=== PATIENT | female | born 1955 | race Caucasian/White ===

== ENCOUNTER 2019-01-25 05:46 | Inpatient (IN) ==
--- NOTE | 2019-01-13 13:51 | PAT Medication Instructions ---
Medication Instructions Date of Service January 13, 2019 Home Medications atorvastatin [Lipitor] 10 mg PO PM calcium carbonate [Calcium 500] 500 mg PO BID chlorthalidone 25 mg PO QAM duloxetine [Cymbalta] 60 mg PO QPM eszopiclone [Lunesta] 3 mg PO HS fexofenadine [Chiara Allergy] 180 mg PO QAM PRN gabapentin 300 mg PO QID levothyroxine [Synthroid] 150 mcg PO QAM losartan 100 mg PO QAM multivitamin 1 cap PO QAM pramipexole [Mirapex] 0.25 mg PO PM sertraline [Zoloft] 25 mg PO 5XWK Continue as directed sertraline [Zoloft] 25 mg PO 5XWK STOP taking 24 hours before surgery pramipexole [Mirapex] 0.25 mg PO PM DO NOT take the morning of surgery calcium carbonate [Calcium 500] 500 mg PO BID chlorthalidone 25 mg PO QAM fexofenadine [Chiara Allergy] 180 mg PO QAM PRN losartan 100 mg PO QAM multivitamin 1 cap PO QAM Take morning of surgery With a small sip of water, OTHERWISE NOTHING TO EAT OR DRINK AFTER MIDNIGHT: gabapentin 300 mg PO QID levothyroxine [Synthroid] 150 mcg PO QAM Take evening before surgery atorvastatin [Lipitor] 10 mg PO PM calcium carbonate [Calcium 500] 500 mg PO BID duloxetine [Cymbalta] 60 mg PO QPM eszopiclone [Lunesta] 3 mg PO HS gabapentin 300 mg PO QID Other Notes If you have any questions please call us at [phone] or [phone] or [phone] or [phone]
--- NOTE | 2019-01-14 13:43 | Anesthesiology Consultation ---
Date of Service January 14, 2019 Assessment & Plan (1) Encounter for pre-operative examination: Chart Review Chart Review: Acceptable Risk for Surgery and Patient seen in Pre Admission Testing Teaching & Discussion Instructed NPO after midnight before surgery, except medications with 15 cc of water. Medication instructions provided according to the PAT guidelines. History Surgery Operation Date: 01/25/19 07:45 Proposed Procedures p L4-S1 Decompression and Fusion, Spinal Cord Monitoring - Matt Antunez DO Height/Weight Height: 5 ft 5 in Weight: 82.2 kg Allergies Allergy/AdvReac Type Severity Reaction Status Date / Time latex Allergy PROLONGED Verified 01/10/19 13:17 EXPOSURE TO LATEX BANDAIDE, RASH moxifloxacin [From Avelox] Allergy Rash Verified 01/10/19 13:17 Penicillins Allergy Rash Verified 01/10/19 13:17 Medications Home Medications Medication Instructions Recorded Confirmed Last Taken atorvastatin [Lipitor] 10 mg PO PM 01/10/19 01/10/19 Unknown calcium carbonate [Calcium 500] 500 mg PO BID 01/10/19 01/10/19 Unknown chlorthalidone 25 mg PO QAM 01/10/19 01/10/19 Unknown duloxetine [Cymbalta] 60 mg PO QPM 01/10/19 01/10/19 Unknown eszopiclone [Lunesta] 3 mg PO HS 01/10/19 01/10/19 Unknown fexofenadine [Chiara Allergy] 180 mg PO QAM PRN 01/10/19 01/10/19 Unknown gabapentin 300 mg PO QID 01/10/19 01/10/19 Unknown levothyroxine [Synthroid] 150 mcg PO QAM 01/10/19 01/10/19 Unknown losartan 100 mg PO QAM 01/10/19 01/10/19 Unknown multivitamin 1 cap PO QAM 01/10/19 01/10/19 Unknown pramipexole [Mirapex] 0.25 mg PO PM 01/10/19 01/10/19 Unknown sertraline [Zoloft] 25 mg PO 5XWK 01/10/19 01/10/19 Unknown Past Medical History Medical History Chronic back pain PAIN RADIATING DOWN B/L LEGS. WORSE IN RIGHT. Degenerative disc disease Depression PT'S SPOUSE A LITTLE OVER A YEAR AGO. Fibromyalgia GERD (gastroesophageal reflux disease) DIET CONTROLLED Hyperlipidemia Hypertension Hypothyroidism Osteoarthritis Rheumatoid arthritis DIAGNOSED "SEVERAL YEARS AGO", PATIENT NOT ON ANY MEDICATIONS FOR RA. WAS ON MTX FOR A WHILE BUT D/C'D BECAUSE IT DIDN'T HELP. Sleep apnea TOLD SHE HAD SLEEP APNEA "MANY YEARS AGO", PT STATES SHE WAS NEVER PRESCRIBED A DEVICE AND DOES NOT HAVE ANY ISSUES. Exercise / Class Metabolic Activity 1 > 8 Run/Swim/Ski/Tennis (PT STATES SHE IS VERY ACTIVE DESPITE BACK PAIN) Past Surgical History Surgical History History of bilateral tubal ligation History of foot surgery RT FOOT. PT STATES PLASTIC HARDWARE WAS PLACED. History of repair of rotator cuff History of sinus surgery Past Anesthesia History No Hx of Anesthesia Complications and No Family Hx of Anesthesia Complications History of PONV No Hx of PONV and No Hx of Motion Sickness Social History Smoking Status: Never smoker Smoking cigarettes per day: 0 Do You Dip or Chew Tobacco: No Hx Alcohol Use: Yes alcohol intake frequency: a few times a month Hx Substance Use: No substance use type: does not use Review of Systems Pt denies any recent chest pain, shortness of breath, palpitations, cough, fever or URI. Physical Exam Vital Signs BP: 140/82 P: 75bpm SPO2: 96% RA T: 98.3 F R: 12 ENMT Mouth: no dental restorations, no chipped teeth and no loose teeth Thyromental Distance: < 3.5 Finger Breadths (2) Mallampati Class: III Neck + shortened thyromental distance and + limited neck extension (can fully extend neck, but has pain with full extension) Respiratory normal respiratory effort Auscultation: lungs clear to auscultation bilaterally Cardiovascular Rate/Rhythm: regular rate and regular rhythm Heart Sounds: no murmur Vessels: no carotid bruit Extremities: no edema Testing Electrocardiogram Date: 01/14/19 Findings: + NSR @ (77) Chest X-Ray Date: 01/14/19 Findings: + NAD Cervical Spine Date: 01/14/19 FINDINGS: Lateral views of the cervical spine in the neutral, flexion, and extension positions are obtained. No prior studies are available for comparison at the time of dictation. The skeletal structures are osteopenic. There is no ra diographic evidence of fracture or subluxation seen on these lateral views. Vertebral body height and alignment are maintained throughout the cervical spine. There is straightening of the cervical lordosis. No inducible bony subluxation is identified on the flexion/extension views. The atlantodental articulation appears maintained noting productive degenerative change. The spinolaminar line is preserved. Anterior osteophytes are seen throughout. There is moderate disc space narrowing seen at C4-C5, C5-C6, and C6-C7. Posterior disc osteophyte complexes at these levels likely contribute to mild multilevel acquired compromise of the central canal. The prevertebral soft tissues are normal as imaged. IMPRESSION: 1. No acute bony abnormality is identified involving the cervical spine. 2. Osteopenia and spondylotic change as above. 3. No inducible subluxation is identified on the flexion/extension views. Laboratory Results 01/14/19 14:03 01/14/19 14:03 Blood Type B Positive 01/14/19 14:03 Antibody Screen NEGATIVE 01/14/19 14:03 PT 10.2 Seconds (9.0-12.0) 01/14/19 14:03 INR 1.0 (0.9-1.1) 01/14/19 14:03 APTT 26.6 Seconds (21.0-31.0) 01/14/19 14:03 Urine Color Yellow 01/14/19 14:03 Urine Appearance Clear (Clear) 01/14/19 14:03 Urine pH 8.0 (4.5-7.5) H 01/14/19 14:03 Ur Specific [place] 1.014 (1.000-1.030) 01/14/19 14:03 Urine Protein Negative (Negative) 01/14/19 14:03 Urine Glucose (UA) Negative (Negative) 01/14/19 14:03 Urine Ketones Negative (Negative) 01/14/19 14:03 Urine Nitrite Negative (Negative) 01/14/19 14:03 Ur Leukocyte Esterase Negative (Negative) 01/14/19 14:03
--- NOTE | 2019-01-14 14:27 | XRay Report ---
XR chest Pre-admission PA/Lat HISTORY: 63 years-old Female pat preoperative exam. No acute chest complaints COMPARISON: None available TECHNIQUE: 2 views of the chest FINDINGS: Cardiomediastinal and hilar silhouettes are within normal limits. No pneumothorax, pleural effusion, focal airspace consolidation or overt pulmonary edema. Degenerative changes of the shoulders and spin e. No erosive arthropathy identified. IMPRESSION: No acute process. The above report was generated using voice recognition software. It may contain grammatical, syntax o r spelling errors. Electronically signed by: Brandon Rodriguez M.D. 01/14/2019 2:26 PM
--- NOTE | 2019-01-14 14:33 | XRay Report ---
CERVICAL SPINE 3 VIEWS CLINICAL HISTORY: Preoperative examination. Rheumatoid arthritis. FINDINGS: Lateral views of the cervical spine in the neutral, flexion, and extension positions are ob tained. No prior studies are available for comparison at the time of dictation. The skeletal structur es are osteopenic. There is no radiographic evidence of fracture or subluxation seen on these lateral views. Vertebral body height and alignment are maintained throughout the cervical spine. There is st raightening of the cervical lordosis. No inducible bony subluxation is identified on the flexion/exte nsion views. The atlantodental articulation appears maintained noting productive degenerative change. The spinolaminar line is preserved. Anterior osteophytes are seen throughout. There is moderate disc space narrowing seen at C4-C5, C5-C6, and C6-C7. Posterior disc osteophyte complexes at these levels likely contribute to mild multilevel acquired compromise of the central canal. The prevertebral soft tissues are normal as imaged. IMPRESSION: 1. No acute bony abnormality is identified involving the cervical spine. 2. Osteopenia and spondylotic change as above. 3. No inducible subluxation is identified on the flexion/extension views. Electronically signed by: Jerry Hyde M.D. 01/14/2019 2:32 PM
[2019-01-14 15:26] LABS: Appearance Urine Clear (Clear); Basophils # (auto) 0.06 K/uL (0-0.2); Bilirubin Urine Negative (Negative); Color Urine Yellow; Eosinophils % (auto) 3.2 %; Glucose Urine UA Negative (Negative); Hematocrit (blood only) 42.2 % (37-47); Hemoglobin 14.7 g/dL (12.0-16.0); Ketones Urine Negative (Negative); Leukocyte Esterase Urine Negative (Negative); Lymphocytes % (auto) 36.7 %; Mean Corpuscular Hgb Conc 34.8 g/dL (32-36); Mean Corpuscular Volume 86.5 fL (80-100); Mean Platelet Volume 9.6 fL (7.4-10.4); Monocytes # (auto) 0.75 K/uL (0.11-0.59); Neutrophils # (auto) 2.96 K/uL (1.4-6.5); Neutrophils % (auto) 47.1 %; Nitrite Urine Negative (Negative); Platelet Count 286 K/uL (130-400); Protein Urine Negative (Negative); RDW Standard Deviation 41.5 fL (36.4-46.3); Red Blood Count 4.88 M/uL (4.2-5.4); Specific Gravity Urine 1.014 (1.000-1.030); Urobilinogen Urine Negative (Negative); White Blood Count 6.27 K/uL (4.8-10.8)
[2019-01-14 15:34] LABS: BUN Creatinine Ratio 11.9 (10-20); Calcium 9.9 mg/dl (8.5-10.1); Creatinine Clr Calc Pharmacy 70.8 ml/min; Est GFR (African American) 83.9; Est GFR (Non-African American) 72.4; Potassium 3.7 mmol/L (3.5-5.1)
[2019-01-14 15:40] LABS: Partial Thromboplastin Time 26.6 Seconds (21.0-31.0); Prothrombin Time 10.2 Seconds (9.0-12.0)
[2019-01-25] MEDS ORDERED: CLINDAMYCIN 600 MG/54 ML BAG IV SCH (06:00)
[2019-01-25] MEDS ORDERED: GABAPENTIN 300 MG x 2 PO SCH (06:00)
[2019-01-25] MEDS ORDERED: ACETAMINOPHEN 500 MG TAB PO SCH (06:00)
[2019-01-25] MEDS ORDERED: CeleBREX 200 MG CAP PO SCH (06:00)
[2019-01-25] MEDS ORDERED: LR 15ML/HR IV SCH (06:00)
[2019-01-25] MEDS ORDERED: fentaNYL citrate 100 MCG/2 ML VIAL ONE ×4 (06:38→09:10)
[2019-01-25] MEDS ORDERED: MIDAZOLAM HCL 1 MG/ML 2ML VIAL ONE (06:38)
[2019-01-25] MEDS ORDERED: HYDROmorphone INJ 2 MG/ML SYR/VIAL ONE ×2 (06:38)
[2019-01-25] MEDS ORDERED: LIDOCAINE HCL 2% 2 ML VIAL/AMP(20MG/ML) INFIL ONE (06:40)
[2019-01-25] MEDS ORDERED: GLYCOPYRROLATE 0.2 MG/ML VIAL ONE (06:40)
[2019-01-25] MEDS ORDERED: ONDANSETRON INJ 2 MG/ML 2 ML VIAL ONE (06:40)
[2019-01-25] MEDS ORDERED: ROCURONIUM BROMIDE 10 MG/ML 5 ML VIAL ONE (06:40)
[2019-01-25] MEDS ORDERED: NEOSTIGMINE METHYLSULFATE 1 MG/ML 10ML VIAL ONE (06:40)
[2019-01-25] MEDS ORDERED: DEXAMETHASONE SOD INJ 4 MG/ML VIAL ONE (06:40)
[2019-01-25] MEDS ORDERED: PROPOFOL IV EMULSION 10 MG/ML 20 ML VIAL IV ONE (06:40)
[2019-01-25] MEDS ORDERED: PROPOFOL IV EMULSION 10 MG/ML 100 ML VIAL IV ONE (06:47)
[2019-01-25] MEDS ORDERED: BUPIVACAINE/EPINEPHRINE 0.5% MPF 1:200,000 30 ML VIAL ONE (06:53)
[2019-01-25] MEDS ORDERED: BACITRACIN INJ 50,000 UNIT VIAL ONE (06:54)
--- NOTE | 2019-01-25 07:30 | History & Physical Bridge Note ---
Date of Service January 25, 2019 History & Physical Bridge Note I have examined the patient, reviewed the History & Physical and in the interval since the performance of the History & Physical I have noted the following changes of clinical significance: no changes noted
--- NOTE | 2019-01-25 07:32 | History & Physical Report ---
Date of Service January 25, 2019 Assessment & Plan (1) Spinal stenosis, lumbar region with neurogenic claudication: L4-S1 decompression fusion Present on Admission?: Yes History of Present Illness Chief Complaint: Back and leg pain Primary Care Provider: Miguel A Carney This is a 63-year-old female who presents with chronic extensive course of nonoperative care she is here for surgical intervention. Allergies Allergy/AdvReac Type Severity Reaction Status Date / Time latex Allergy PROLONGED Verified 01/25/19 06:09 EXPOSURE TO LATEX BANDAIDE, RASH moxifloxacin [From Avelox] Allergy Rash Verified 01/25/19 06:09 Penicillins Allergy Rash Verified 01/25/19 06:09 Home Medications Home Medications Medication Instructions Recorded Confirmed Type atorvastatin [Lipitor] 10 mg PO PM 01/10/19 01/25/19 History calcium carbonate [Calcium 500] 500 mg PO BID 01/10/19 01/25/19 History chlorthalidone 25 mg PO QAM 01/10/19 01/25/19 History duloxetine [Cymbalta] 60 mg PO QPM 01/10/19 01/25/19 History eszopiclone [Lunesta] 3 mg PO HS 01/10/19 01/25/19 History fexofenadine [Chiara Allergy] 180 mg PO QAM PRN 01/10/19 01/25/19 History gabapentin 300 mg PO QID 01/10/19 01/25/19 History levothyroxine [Synthroid] 150 mcg PO QAM 01/10/19 01/25/19 History losartan 100 mg PO QAM 01/10/19 01/25/19 History multivitamin 1 cap PO QAM 01/10/19 01/25/19 History pramipexole [Mirapex] 0.25 mg PO PM 01/10/19 01/25/19 History sertraline [Zoloft] 25 mg PO DAILY 01/10/19 01/25/19 History Past Med/Surg History Medical History Chronic back pain PAIN RADIATING DOWN B/L LEGS. WORSE IN RIGHT. Degenerative disc disease Depression PT'S SPOUSE A LITTLE OVER A YEAR AGO. Fibromyalgia GERD (gastroesophageal reflux disease) DIET CONTROLLED Hyperlipidemia Hypertension Hypothyroidism Osteoarthritis Rheumatoid arthritis DIAGNOSED "SEVERAL YEARS AGO", PATIENT NOT ON ANY MEDICATIONS FOR RA. WAS ON MTX FOR A WHILE BUT D/C'D BECAUSE IT DIDN'T HELP. Sleep apnea TOLD SHE HAD SLEEP APNEA "MANY YEARS AGO", PT STATES SHE WAS NEVER PRESCRIBED A DEVICE AND DOES NOT HAVE ANY ISSUES. Surgical History History of bilateral tubal ligation History of foot surgery RT FOOT. PT STATES PLASTIC HARDWARE WAS PLACED. History of repair of rotator cuff History of sinus surgery Social History Preferred Language: Maltese Shipping Inspector Required: No Beliefs That Will Affect Care: None Current Living Situation: Alone Other Information That Helps Us Care for You: No Feels Safe at Home: Yes Safety Concerns: Feels Safe At This Time Smoking Status: Never smoker Cigarettes Per Day: 0 Do You Dip or Chew Tobacco: No Second Hand Exposure: No Tobacco Cessation Education Requested by Patient: No Hx Alcohol Use: Yes Hx Substance Use: No Physical Exam Vital Signs (Past 24 Hours): Last Vital Signs Temp 36.8 C 01/25/19 06:16 Pulse 98 H 01/25/19 06:16 Resp 18 01/25/19 06:16 BP 168/76 H 01/25/19 06:16 Pulse Ox 97 01/25/19 06:16 Physical Exam: Patient is alert and oriented neurologically intact.
[2019-01-25] MEDS ORDERED: ePHEDrine sulfate 50 MG/ML AMP IV PRN (08:51)
[2019-01-25] MEDS ORDERED: ATROPINE SULFATE 0.1 MG/ML 10ML SYR IV PRN (08:51)
[2019-01-25] MEDS ORDERED: fentaNYL citrate 100 MCG/2 ML VIAL IV PRN (08:51)
[2019-01-25] MEDS ORDERED: HYDROmorphone INJ 2 MG/ML SYR/VIAL IV PRN (08:51)
[2019-01-25] MEDS ORDERED: ONDANSETRON INJ 2 MG/ML 2 ML VIAL IV PRN ×2 (08:51→11:42)
[2019-01-25] MEDS ORDERED: FLOSEAL HEMOSTATIC MATRIX 10ML TOP ONE (09:23)
[2019-01-25] MEDS ORDERED: KETOROLAC 30 MG/ML VIAL ONE (10:09)
[2019-01-25] MEDS ORDERED: ESMOLOL HCL INJ 10 MG/ML 10ML VIAL IV ONE (10:09)
[2019-01-25] MEDS ORDERED: METOCLOPRAMIDE HCL INJ 5 MG/ML 2 ML VIAL ONE (10:09)
--- NOTE | 2019-01-25 10:14 | Operative Report ---
Post Operative Report Pre & Post Diagnosis Operation Date: 01/25/19 07:45 Pre-Op Diagnosis: Lumbar spinal stenosis with neurogenic claudication Obesity Post-Op Diagnosis: Same Procedure Operation Date: 01/25/19 07:45 Actual Procedures #1 lumbar decompression bilateral medial facetectomies and foraminotomies L3-4 L4-5 L5-S1. #2 posterior spinal fusion L4-5 L5-S1. #3 posterior segmental instrumentation L4-5 L5-S1. #4 interbody fusion L4-5 L5-S1. #5 history of peek cage 11 x 22 mm L4-5 L5-S1. #6 placement of locally harvested morselized autograft in the posterior lateral gutters. #7 placement infuse collagen sponge bone mass graft in the posterior lateral gutters and ostial amp in the interbody space. Surgeon Matt Antunez, DO Teacher Ballet Coco Craig Estimated Blood Loss 250 Findings See Below Patient is 5 foot and 5 inches tall weighing over 84 kg with a BMI of 31. Patient's body habitus did add at least 25% increase in operative time due to the technical difficulty. Specimens None Indications This is a 63-year-old female that presents with significant spinal stenosis and marked decline in status. Subsequently she is here for surgical intervention. Description of Procedure Patient was met with identified and informed consent obtained. Patient was then taken to the operative suite underwent intubation placed in a prone position on the Tavo table on top of the Luke frame. All bony prominences well-padded eyes inspected to ensure no external pressure placed upon the peer at this point the lumbar spine was prepped and draped in the normal sterile fashion. Sharp dissection with the assistance of Bovie cautery was performed down to and exposing the lamina and transverse processes of L3-L4-L5 and the sacral ala bilaterally. From a caudal to cephalad fashion complete laminectomy of L5 L4 and partial laminectomy of L3 was performed including bilateral medial facetectomies and foraminotomies addressing severe stenosis. Pedicle screws were then placed in L4-L5 and S1 levels bilaterally with assistance of fluoroscopy and the probably size soheila placed. By way of a transforaminal approach on the right complete discectomy of L5-S1 was performed in place curetted to subcortical bleeding bone in the 11 x 22 mm peek cage filled with ostium bone graft tapped in position. Then proceeded to L4-[address] of a transforaminal approach complete discectomy performed in plate graded to subcortical bleeding bone and again 11 x 22 mm peek cage filled with ostium bone graft tapped in position. The rods were then locked in final position bilaterally. The transverse processes of L4-L5 and sacral ala bur to subcortical bleeding bone. Infuse collagen sponge mass graft local autograft placed in the posterior lateral gutters. 15 round DAVID drain inserted. The incision was then closed with 1 Vicryl in the fascia 2-0 Vicryl subcutaneously and 4-0 Monocryl for final skin closure. Steri-Strip sterile dressings placed. Patient will continue to PACU stable condition. Please note Coco Craig present throughout the entire procedure involved in patient positioning complex portions of the surgery and final skin closure. Lastly spinal cord monitoring was utilized and no changes noted. I attest to the content of the Intraoperative Record and any orders documented therein. Any exceptions are noted below.
--- NOTE | 2019-01-25 10:21 | Fluoroscopy Report ---
LUMBAR SPINE, INTRAOPERATIVE FLUOROSCOPY HISTORY: L4 S1 decompression and fusion. FLUOROSCOPY TIME: 23 seconds. FINDINGS: Intraoperative fluoroscopy was provided for the lumbar spine. 2 fluoroscopic spot images we re obtained. Posterior decompression and fusion from L4 through S1 with pedicle screws and rods. The hardware appears intact. IMPRESSION: Fluoroscopy provided for a L4-S1 posterior decompression and fusion. Electronically signed by: Fabian Carbone M.D. 01/25/2019 10:20 AM
[2019-01-25] MEDS ORDERED: LARYING-O-JET KIT (LTA) ONE (11:15)
[2019-01-25] MEDS ORDERED: ONDANSETRON 4 MG TAB PO PRN (11:42)
[2019-01-25] MEDS ORDERED: METOCLOPRAMIDE HCL INJ 5 MG/ML 2 ML VIAL IV PRN (11:42)
[2019-01-25] MEDS ORDERED: MAGNESIUM HYDROXIDE SUSP 30 ML UDC PO PRN (11:42)
[2019-01-25] MEDS ORDERED: FEXOFENADINE HCL 180 MG TAB PO PRN (11:42)
[2019-01-25] MEDS ORDERED: ALUMINUM/MAGNESIUM SUSP 30 ML UDC PO PRN (11:42)
[2019-01-25] MEDS ORDERED: DO NOT ADMINISTER PNEUMOCOCCAL VACCINE PRN (11:42)
[2019-01-25] MEDS ORDERED: FAMOTIDINE 20 MG TAB PO PRN (11:42)
[2019-01-25] MEDS ORDERED: ACETAMINOPHEN 1,000 MG/100 ML VIAL IV PRN (11:42)
[2019-01-25] MEDS ORDERED: BISACODYL 10 MG SUPP PR PRN (11:42)
[2019-01-25] MEDS ORDERED: PROMETHAZINE HCL 12.5 MG in SODIUM CHLORIDE 0.9% 50 ML IV PRN (11:42)
[2019-01-25] MEDS ORDERED: TRAMADOL HCL 50 MG TABLET PO PRN (11:42)
[2019-01-25] MEDS ORDERED: DO NOT ADMINISTER FLU VACCINE PRN (11:42)
[2019-01-25] MEDS ORDERED: LORazepam 0.5 MG TAB PO PRN (11:42)
[2019-01-25] MEDS ORDERED: HYDROmorphone INJ 0.5 MG/0.5 ML SYR IV PRN (11:42)
[2019-01-25] MEDS ORDERED: SOD PHOSPHATE/SOD BIPHOSPHATE ENEMA 132 ML BTL PR PRN (11:42)
[2019-01-25] MEDS ORDERED: LORazepam 0.5 MG/1 ML VIAL IV PRN (11:42)
--- NOTE | 2019-01-25 11:43 | Anesthesiology Progress Note ---
Date of Service January 25, 2019 Anesthesia Post Procedure Vital Signs Vital Signs: Temp Pulse Pulse Resp BP Pulse Ox 01/25/19 11:05 37.0 C 106 H 15 144/97 H 96 01/25/19 10:55 103 H 15 148/74 H 96 01/25/19 10:45 105 H 21 130/77 100 01/25/19 10:35 85 14 119/60 100 01/25/19 10:29 36.4 C L 85 12 134/74 96 01/25/19 06:16 36.8 C 98 H 18 168/76 H 97 Transfer of Care Handoff Completed per policy Notes Mental Status: alert / awake / arousable Patient Amnestic to Procedure: Yes Nausea / Vomiting: adequately controlled Pain: adequately controlled Airway Patency, RR, SpO2: stable & adequate BP & HR: stable & adequate Hydration State: stable & adequate Anesthetic Complications: no major complications apparent
[2019-01-25] MEDS ORDERED: LACTATED RINGER'S 1,000 ML IV SCH (12:15)
[2019-01-25] MEDS: GABAPENTIN 300 MG CAP PO SCH ×3 (13:41→21:33)
[2019-01-25] MEDS: OXYCODONE HCL IR 5 MG TAB (IMMEDIATE RELEASE) PO PRN (14:49)
[2019-01-25] MEDS: CLINDAMYCIN 600 MG in DEXTROSE 5% 50 ML IV SCH ×2 (15:56→22:56)
[2019-01-25] MEDS: KETOROLAC TROMETHAMINE 15 MG/ML VIAL IV SCH ×2 (15:57→21:33)
[2019-01-25] MEDS ORDERED: CALCIUM CARBONATE 1250MG TAB PO SCH (17:00)
[2019-01-25] MEDS: CALCIUM CARBONATE 1250MG TAB PO SCH (17:49)
[2019-01-25] MEDS: PRAMIPEXOLE DIHYDROCHLO 0.25 MG TAB PO SCH (21:32)
[2019-01-25] MEDS: ESZOPICLONE 3 MG TAB PO SCH (21:32)
[2019-01-25] MEDS: ATORVASTATIN 10 MG TAB PO SCH (21:33)
[2019-01-25] MEDS: DULOXETINE HCL 60 MG CAP PO SCH (21:33)
[2019-01-25] MEDS: DOCUSATE SODIUM/SENNA 50/8.6MG TAB PO SCH (21:33)
[2019-01-26] MEDS: KETOROLAC TROMETHAMINE 15 MG/ML VIAL IV SCH ×3 (03:49→10:30)
[2019-01-26] MEDS: LEVOTHYROXINE SODIUM 150 MCG TABLET PO SCH (05:29)
[2019-01-26] MEDS: POLYETHYLENE (MIRALAX) 17 GM PACK PO SCH ×3 (05:29→18:00)
[2019-01-26 05:49] LABS: Hematocrit (blood only) 31.9 % (37-47); Hemoglobin 10.9 g/dL (12.0-16.0); Immature Granulocytes # (auto) 0.06 K/uL (0.00-0.02); Immature Granulocytes % (auto) 0.3 %; Lymphocytes # (auto) 1.52 K/uL (1.2-3.4); Lymphocytes % (auto) 8.3 %; Mean Corpuscular Hgb Conc 34.2 g/dL (32-36); Mean Corpuscular Volume 85.3 fL (80-100); Mean Platelet Volume 8.7 fL (7.4-10.4); Monocytes # (auto) 1.15 K/uL (0.11-0.59); Monocytes % (auto) 6.3 %; Neutrophils # (auto) 15.59 K/uL (1.4-6.5); Neutrophils % (auto) 85.1 %; Platelet Count 239 K/uL (130-400); RDW Coefficient of Variation 12.4 % (11.5-14.5); RDW Standard Deviation 38.5 fL (36.4-46.3); Red Blood Count 3.74 M/uL (4.2-5.4); White Blood Count 18.32 K/uL (4.8-10.8)
[2019-01-26 06:18] LABS: BUN Creatinine Ratio 17.5 (10-20); Calcium 8.7 mg/dl (8.5-10.1); Creatinine Clr Calc Pharmacy 65.5 ml/min; Est GFR (African American) 75.3; Est GFR (Non-African American) 64.9; Potassium 3.8 mmol/L (3.5-5.1)
[2019-01-26] MEDS: CALCIUM CARBONATE 1250MG TAB PO SCH ×2 (08:36→17:59)
[2019-01-26] MEDS: MULTIVITAMIN TAB PO SCH (08:36)
[2019-01-26] MEDS: GABAPENTIN 300 MG CAP PO SCH ×4 (08:36→20:31)
[2019-01-26] MEDS: CHLORTHALIDONE 25 MG TAB PO SCH (08:36)
[2019-01-26] MEDS: SERTRALINE HCL 50 MG TABLET PO SCH (08:37)
--- NOTE | 2019-01-26 08:43 | Anesthesiology Progress Note ---
Date of Service January 26, 2019 Anesthesia Post Procedure Vital Signs Vital Signs: Temp Pulse Pulse Resp BP Pulse Ox 01/26/19 07:25 36.6 C 74 17 130/66 96 01/26/19 03:51 36.7 C 92 H 16 120/63 92 01/25/19 22:54 36.7 C 106 H 18 118/67 95 01/25/19 20:04 36.5 C 107 H 16 115/73 93 01/25/19 14:26 112 H 16 125/73 01/25/19 13:34 36.5 C 107 H 18 134/72 91 01/25/19 12:33 36.7 C 84 16 135/79 91 01/25/19 11:57 105 H 18 141/79 H 93 01/25/19 11:25 36.4 C L 102 H 18 149/68 H 94 01/25/19 11:05 37.0 C 106 H 15 144/97 H 96 01/25/19 10:55 103 H 15 148/74 H 96 01/25/19 10:45 105 H 21 130/77 100 01/25/19 10:35 85 14 119/60 100 01/25/19 10:29 36.4 C L 85 12 134/74 96 Pain Intensity Back: Pain Intensity: 2 Notes Mental Status: alert / awake / arousable and participated in evaluation Patient Amnestic to Procedure: Yes Nausea / Vomiting: adequately controlled Pain: adequately controlled Airway Patency, RR, SpO2: stable & adequate BP & HR: stable & adequate Anesthetic Complications: no major complications apparent and Pt Satisfied with anesthetic care
[2019-01-26] MEDS: OXYCODONE HCL IR 5 MG TAB (IMMEDIATE RELEASE) PO PRN ×3 (08:46→21:31)
[2019-01-26] MEDS: LOSARTAN POTASSIUM 50 MG TAB PO SCH (09:25)
[2019-01-26] MEDS: ACETAMINOPHEN 500 MG TAB PO PRN ×2 (10:33→21:31)
--- NOTE | 2019-01-26 13:49 | Orthopedic Progress Note ---
Date of Service January 26, 2019 Assessment & Plan (1) Spinal stenosis, lumbar region with neurogenic claudication: At this time we will continue physical therapy monitor her DAVID output anticipate discharge home the next few days. Present on Admission?: Yes Subjective Patient's back pain is well controlled leg symptoms markedly improved. Physical Exam Physical Exam: On exam she is good strength testing appears comfortable. Results & Data Vital Signs (Past 12 Hours) Vital Signs Temp Pulse Pulse Resp BP Pulse Ox 01/26/19 12:04 36.4 C L 90 16 114/66 97 01/26/19 07:25 36.6 C 74 17 130/66 96 01/26/19 03:51 36.7 C 92 H 16 120/63 92
[2019-01-26] MEDS: DOCUSATE SODIUM/SENNA 50/8.6MG TAB PO SCH (20:31)
[2019-01-26] MEDS: PRAMIPEXOLE DIHYDROCHLO 0.25 MG TAB PO SCH (20:31)
[2019-01-26] MEDS: ATORVASTATIN 10 MG TAB PO SCH (20:31)
[2019-01-26] MEDS: DULOXETINE HCL 60 MG CAP PO SCH (20:31)
[2019-01-26] MEDS: ESZOPICLONE 3 MG TAB PO SCH (21:31)
[2019-01-27] MEDS: ACETAMINOPHEN 500 MG TAB PO PRN ×3 (05:43→23:25)
[2019-01-27] MEDS: OXYCODONE HCL IR 5 MG TAB (IMMEDIATE RELEASE) PO PRN ×5 (05:43→23:25)
[2019-01-27] MEDS: LEVOTHYROXINE SODIUM 150 MCG TABLET PO SCH (05:43)
[2019-01-27] MEDS: SERTRALINE HCL 50 MG TABLET PO SCH (08:22)
[2019-01-27] MEDS: GABAPENTIN 300 MG CAP PO SCH ×4 (08:22→21:05)
[2019-01-27] MEDS: MULTIVITAMIN TAB PO SCH (08:22)
[2019-01-27] MEDS: CHLORTHALIDONE 25 MG TAB PO SCH (08:22)
[2019-01-27] MEDS: CALCIUM CARBONATE 1250MG TAB PO SCH ×2 (08:22→16:19)
[2019-01-27] MEDS: LOSARTAN POTASSIUM 50 MG TAB PO SCH (08:23)
--- NOTE | 2019-01-27 15:49 | Orthopedic Progress Note ---
Date of Service January 27, 2019 Assessment & Plan (1) Spinal stenosis, lumbar region with neurogenic claudication: This time we will continue physical therapy monitor her DAVID output anticipate discharge home tomorrow. Present on Admission?: Yes Subjective Patient's back pain is well controlled leg symptoms markedly improved. Physical Exam Physical Exam: Patient is in the chair at the bedside. She has good strength testing. Appears comfortable. Results & Data Vital Signs (Past 12 Hours) Vital Signs Temp Pulse Resp BP Pulse Ox 01/27/19 15:13 36.9 C 95 H 16 117/71 96 01/27/19 08:00 36.7 C 74 16 115/65 96
[2019-01-27] MEDS: DULOXETINE HCL 60 MG CAP PO SCH (21:05)
[2019-01-27] MEDS: ATORVASTATIN 10 MG TAB PO SCH (21:05)
[2019-01-27] MEDS: DOCUSATE SODIUM/SENNA 50/8.6MG TAB PO SCH (21:05)
[2019-01-27] MEDS: PRAMIPEXOLE DIHYDROCHLO 0.25 MG TAB PO SCH (21:05)
[2019-01-27] MEDS: ESZOPICLONE 3 MG TAB PO SCH (21:06)
[2019-01-28] MEDS: LEVOTHYROXINE SODIUM 150 MCG TABLET PO SCH (05:21)
[2019-01-28] MEDS: OXYCODONE HCL IR 5 MG TAB (IMMEDIATE RELEASE) PO PRN ×2 (07:54→12:07)
[2019-01-28] MEDS: ACETAMINOPHEN 500 MG TAB PO PRN (07:54)
[2019-01-28] MEDS: LOSARTAN POTASSIUM 50 MG TAB PO SCH (08:33)
[2019-01-28] MEDS: CALCIUM CARBONATE 1250MG TAB PO SCH (08:33)
[2019-01-28] MEDS: SERTRALINE HCL 50 MG TABLET PO SCH (08:34)
[2019-01-28] MEDS: CHLORTHALIDONE 25 MG TAB PO SCH (08:34)
[2019-01-28] MEDS: MULTIVITAMIN TAB PO SCH (08:34)
[2019-01-28] MEDS: GABAPENTIN 300 MG CAP PO SCH ×2 (08:34→12:08)
--- NOTE | 2019-01-28 15:24 | Discharge Summary ---
Date of Service January 28, 2019 Admission HPI Per Admitting Provider This is a 63-year-old female who presents with chronic extensive course of nonoperative care she is here for surgical intervention. Principal Diagnosis Lumbar spinal stenosis with neurogenic claudication Discharge Data Allergies Allergy/AdvReac Type Severity Reaction Status Date / Time latex Allergy PROLONGED Verified 01/25/19 06:09 EXPOSURE TO LATEX BANDAIDE, RASH moxifloxacin [From Avelox] Allergy Rash Verified 01/25/19 06:09 Penicillins Allergy Rash Verified 01/25/19 06:09 Consultations 01/25/19 11:42 Consult Case Management - Discharge Planning Routine Procedures Performed Operation Date: 01/25/19 07:45 Actual Procedures p L4-S1 Decompression and Fusion, Interbody Cage L4-L5, L5-S1, Spinal Cord Monitoring - Matt Antunez DO Ordered Studies 01/25/19 07:45 FL fluoroscopy <1hr Routine FL lumbar spine 2-3V Routine Hospital Course (1) Spinal stenosis, lumbar region with neurogenic claudication: Patient underwent lumbar decompression fusion tolerated this well was taken to the orthopedic floor postoperative. Postop day and when she was up and ambulating nicely progressed to postop day #2. DAVID drain decreasing appropriately. Subsequently discharged home on postop day #3. Discharge orders and instructions can be found the chart for further review. Total Time Total Time Spent Total Time Spent (In Minutes): 20 minutes Discharge Plan Discharge Items Patient Disposition: Home - Self-Care Reason For Visit: LUMBAR SPINAL STENOSIS W/OUT NEUROGENIC CLAUDICATI Discharge Diagnosis: lumbar stenosis Discharge Goals: Improve function Activity: Per 'Additional Instructions' section Non-emergency contact: Primary Care Provider Call non-emergency contact if: you have any medication questions Follow-up/Referrals: Miguel A Carney M.D. [Primary Care Provider] - Diet: Regular Addtl Provider Instructions: ACTIVITY RECOMMENDATIONS: SELF CARE INSTRUCTIONS AFTER THORACIC/LUMBAR FUSIONS 1. You may walk to your tolerance. It is good exercise for your legs and back. Expect some back and intermittent leg aches and pains. 2. You may perform "counter-top" level activities (make a sandwich, sandra with a project, etc.). 3. No bending or lifting of more than 10 pounds or back twisting of any nature (roll like a log when turning in bed). 4. You may ride in a car for 20-30 minutes at a time. No driving until after your first visit with your doctor. 5. Frequent changes of position and restricting sitting to 30 minutes at a time will help limit the amount of back spasms and stiffness you may experience. 6. You may discontinue the use of ambulatory aids (cane, crutches, etc.) once your strength and confidence allow. 7. You may powerhouse engineer the shower and let water strike your incision when you arrive home at least once daily. Do not take a tub bath, sit in a hot tub or go into a swimming pool until after your first recheck in the office. SPECIAL CARE INSTRUCTIONS: VERY IMPORTANT TO READ AND REVIEW A. Your surgical incision has been closed with a cosmetic suture under the skin that will dissolve in about 6 weeks. In 14 days, you can use a pair of clean scissors and cut the suture that is left outside of the skin at the ends of your incision. 1. The small skin tapes can be removed 7 days after surgery if they have not fallen off by that point. 2. You may keep the wound open to air as much as possible to promote healing after post-op day number 5 unless told otherwise by your doctor. 3. If you think the wound looks like it is becoming infected (redness or worsening drainage) and/or you are experiencing fever, chill or worsening back pain and muscle spasms, contact the office so that we may evaluate you as soon as possible. B. Complications are uncommon, but please contact us if you have any signs or symptoms of: 1. wound infection (fever higher than 102.5 degrees F, redness, separation of wound, drainage, or increasing pain from the incision) 2. blood clots in legs (pain, swelling, redness and warmth in legs) 3. urinary tract infection (fever higher than 102.5 degrees F, burning upon urination or increased frequency of urination) 4. nerve problems (inability to walk on your toes or heels, numbness, loss of bowel or bladder control) 5. any other symptoms that concern you C. Please call the office at if you have any concerns or questions about your operation or recovery. D. No smoking! Smoking drastically decreases the chance of a solid fusion. E. Do not take any anti-inflammatory medications (Indocin, Advil, Motrin, Aspirin, Naprosyn, etc.) as these may inhibit the chance of a solid fusion. Tylenol is okay to take for pain. MANAGING PAIN AFTER SPINAL SURGERY 1. Narcotic medication is intended for short-term use and will be provided for surgical pain. Surgical pain usually lasts for a period of 4-6 weeks. Narcotic medication includes Percocet, Vicodin, Darvocet, Tylenol #3 or Lortab. 2. Longer-term pain is more appropriately treated with non-narcotic medication such as Tylenol ES. 3. Muscle spasm is not appropriately treated with narcotics. Muscle relaxers such as Soma, Flexeril or Skelaxin can be used along with Tylenol ES. 4. Remember that we all live with some "aches and pains". This is not unusual or uncommon after an injury or as we get older. a. Back pain is expected and may include muscle spasms for 4 to 6 weeks after surgery. The pain should gradually improve. If the pain worsens for no apparent reason, please contact the office. b. Intermittent leg pain may also be experienced and should not be concerned about unless it worsens for no apparent reason. If so, please contact the office. 5. We will provide appropriate medication within the normal guidelines of their prescribed use. We will also be very cautious and aware of potential abuse and extended duration of patients' medication needs. a. Pain medications are for your comfort and to assist with sleep and rest so that the tissue can heal. They are not provided in order to return to normal activity and should not be used through the day. To do so or worsening pain at night can result from ongoing tissue damage and development of tolerance to the prescribed medicine. 6. Please allow 2-3 days to process refills. Prescriptions will not be mailed but must be picked up at the office. FOLLOW UP VISIT: Keep your scheduled follow-up appointment. Any questions, please call the office at . Prescriptions: New tramadol 50 mg Tablet 50 mg PO Q4H PRN (Reason: Pain, Moderate) Qty: 30 RF: 0 oxycodone 5 mg Tablet 5 mg PO Q4H PRN (Reason: Pain, Severe) Qty: 30 RF: 0 Continued atorvastatin [Lipitor] 10 mg Tablet 10 mg PO PM RF: 0 fexofenadine [Chiara Allergy] 180 mg Tablet 180 mg PO QAM PRN (Reason: Allergy Symptoms) RF: 0 calcium carbonate [Calcium 500] 500 mg calcium (1,250 mg) Tablet 500 mg PO BID RF: 0 levothyroxine [Synthroid] 150 mcg Tablet 150 mcg PO QAM RF: 0 pramipexole [Mirapex] 0.25 mg Tablet 0.25 mg PO PM RF: 0 gabapentin 300 mg Capsule 300 mg PO QID RF: 0 sertraline [Zoloft] 25 mg Tablet 25 mg PO DAILY RF: 0 losartan 100 mg Tablet 100 mg PO QAM RF: 0 multivitamin Capsule 1 cap PO QAM RF: 0 duloxetine [Cymbalta] 60 mg Capsule,Delayed Release(Dr/Ec) 60 mg PO QPM RF: 0 eszopiclone [Lunesta] 3 mg Tablet 3 mg PO HS RF: 0 chlorthalidone 25 mg Tablet 25 mg PO QAM RF: 0 Stand-Alone Forms: SAVO, Opioid Pain Management Krames/Other Patient Handouts: Surgery Prevent DVT After Discharge Orders: Discharge Order (Routine); Ordered 01/28/19 Ordered By: Matt Antunez Admission Data Admit Date/Time: 01/25/19 10:18 Attending Provider: Matt Antunez Admit Provider: Matt Antunez Primary Care Provider: Miguel A Carney Service: Surgical Services Other Interventions: Discharge Summary Assessment (RN) Last Done: 01/28/19 12:40 DC Date/Time DO NOT enter until pt leaves facility: 01/28/19 13:50
== END 2019-01-28 13:50 | disposition home or self-care (01) | DRG 455 ==
LOC: ASU 05:46 → 3E 10:18

== ENCOUNTER 2019-03-03 11:24 | Inpatient (IN) ==
[2019-03-03] MEDS ORDERED: TRAMADOL HCL 50 MG TABLET PO PRN (12:29)
[2019-03-03] MEDS ORDERED: LORazepam 1 MG/2 ML VIAL IV PRN (12:29)
[2019-03-03] MEDS ORDERED: ONDANSETRON INJ 2 MG/ML 2 ML VIAL IV PRN (12:29)
[2019-03-03] MEDS ORDERED: PROMETHAZINE HCL 12.5 MG in SODIUM CHLORIDE 0.9% 50 ML IV PRN (12:29)
[2019-03-03] MEDS ORDERED: ACETAMINOPHEN 325 MG TAB PO PRN (12:29)
[2019-03-03] MEDS ORDERED: LORazepam 1 MG TAB PO PRN (12:29)
[2019-03-03] MEDS: OXYCODONE/ACETAMINOPHEN 5mg/325mg TAB PO PRN ×3 (13:16→22:05)
[2019-03-03] MEDS: LACTATED RINGER'S 1,000 ML IV SCH (13:38)
--- NOTE | 2019-03-03 13:40 | Anesthesiology Consultation ---
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 Surgery Operation Date: 03/04/19 07:45 Proposed Procedures p Incision and Drainage Lumbar Spine of Post-Op Seroma, - Matt Antunez DO s L5-S1 Hardware Removal - Matt Antunez DO Allergies Allergy/AdvReac Type Severity Reaction Status Date / Time latex Allergy PROLONGED Verified 01/25/19 06:09 EXPOSURE TO LATEX BANDAIDE, RASH moxifloxacin [From Avelox] Allergy Rash Verified 01/25/19 06:09 Penicillins Allergy Rash Verified 01/25/19 06:09 Medications Home Medications Medication Instructions Recorded Confirmed Last Taken atorvastatin [Lipitor] 10 mg PO PM 01/10/19 01/25/19 01/24/19 20:30 calcium carbonate [Calcium 500] 500 mg PO BID 01/10/19 01/25/19 01/24/19 08:30 chlorthalidone 25 mg PO QAM 01/10/19 01/25/19 01/24/19 08:30 duloxetine [Cymbalta] 60 mg PO QPM 01/10/19 01/25/19 01/24/19 17:00 eszopiclone [Lunesta] 3 mg PO HS 01/10/19 01/25/19 01/24/19 20:30 fexofenadine [Chiara Allergy] 180 mg PO QAM PRN 01/10/19 01/25/19 Unknown gabapentin 300 mg PO QID 01/10/19 01/25/19 01/25/19 03:30 levothyroxine [Synthroid] 150 mcg PO QAM 01/10/19 01/25/19 01/25/19 03:30 losartan 100 mg PO QAM 01/10/19 01/25/19 01/24/19 08:30 multivitamin 1 cap PO QAM 01/10/19 01/25/19 01/24/19 08:30 pramipexole [Mirapex] 0.25 mg PO PM 01/10/19 01/25/19 01/23/19 13:00 sertraline [Zoloft] 25 mg PO DAILY 01/10/19 01/25/19 01/24/19 20:30 oxycodone 5 mg PO Q4H PRN #30 tab 01/26/19 Unknown tramadol 50 mg PO Q4H PRN #30 tab 01/26/19 Unknown Active Medications Generic Name Dose Route Start Last Admin Trade Name Manisha PRN Reason Stop Dose Admin Lactated Ringer's 1,000 mls @ 75 mls/hr 03/03/19 12:30 03/03/19 13:38 Lr IV 04/02/19 12:29 75 mls/hr .[id number] [id number] Administration Oxycodone/Acetaminophen 1 - 2 tab 03/03/19 12:29 03/03/19 13:16 Percocet 5mg/325mg PO 03/17/19 12:28 2 tab Q4H PRN Administration moderate to severe pain Past Medical History Medical History Chronic back pain PAIN RADIATING DOWN B/L LEGS. WORSE IN RIGHT. Degenerative disc disease Depression PT'S SPOUSE A LITTLE OVER A YEAR AGO. Fibromyalgia GERD (gastroesophageal reflux disease) DIET CONTROLLED Hyperlipidemia Hypertension Hypothyroidism Osteoarthritis Rheumatoid arthritis DIAGNOSED "SEVERAL YEARS AGO", PATIENT NOT ON ANY MEDICATIONS FOR RA. WAS ON MTX FOR A WHILE BUT D/C'D BECAUSE IT DIDN'T HELP. Sleep apnea TOLD SHE HAD SLEEP APNEA "MANY YEARS AGO", PT STATES SHE WAS NEVER PRESCRIBED A DEVICE AND DOES NOT HAVE ANY ISSUES. Exercise / Class Metabolic Activity II 4-5 Yardwork/Stairs/Walk up hill Past Surgical History Surgical History History of bilateral tubal ligation History of foot surgery RT FOOT. PT STATES PLASTIC HARDWARE WAS PLACED. History of repair of rotator cuff History of sinus surgery Social History Smoking Status: Never smoker Smoking cigarettes per day: 0 Hx Alcohol Use: Yes alcohol intake frequency: a few times a month Hx Substance Use: No substance use type: does not use Testing Laboratory Results Laboratory Tests 01/14/19 01/26/19 01/26/19 14:03 05:26 05:26 WBC 18.32 H Hgb 10.9 L Plt Count 239 PT 10.2 INR 1.0 APTT 26.6 Sodium 136 Potassium 3.8 Chloride 103 Carbon Dioxide 28 BUN 16 Creatinine 0.93 Glucose 136 H Electrocardiogram Date: 01/14/19 Normal sinus rhythm, rate 77 bpm Normal ECG No previous ECGs available Confirmed by Winston Coleman ([id number]) on 01/15/2019 6:52:21 AM Chest X-Ray Date: 01/14/19 Findings: + NAD Cervical Spine Date: 01/14/19 IMPRESSION: 1. No acute bony abnormality is identified involving the cervical spine. 2. Osteopenia and spondylotic change as above. 3. No inducible subluxation is identified on the flexion/extension views.
[2019-03-03 15:02] LABS: Basophils # (auto) 0.04 K/uL (0-0.2); Basophils % (auto) 0.6 %; Eosinophils # (auto) 0.43 K/uL (0-0.5); Eosinophils % (auto) 6.7 %; Hematocrit (blood only) 27.9 % (37-47); Hemoglobin 9.5 g/dL (12.0-16.0); Immature Granulocytes # (auto) 0.01 K/uL (0.00-0.02); Immature Granulocytes % (auto) 0.2 %; Lymphocytes % (auto) 21.8 %; Mean Corpuscular Hgb Conc 34.1 g/dL (32-36); Mean Corpuscular Volume 84.3 fL (80-100); Mean Platelet Volume 7.6 fL (7.4-10.4); Monocytes % (auto) 12.5 %; Neutrophils # (auto) 3.74 K/uL (1.4-6.5); Neutrophils % (auto) 58.2 %; Platelet Count 404 K/uL (130-400); RDW Standard Deviation 39.7 fL (36.4-46.3); Red Blood Count 3.31 M/uL (4.2-5.4); White Blood Count 6.42 K/uL (4.8-10.8)
[2019-03-03 15:27] LABS: Albumin Level 2.8 gm/dl (3.4-5.0); Calcium 10.1 mg/dl (8.5-10.1); Creatinine Clr Calc Pharmacy 76.7 ml/min; Est GFR (African American) 93.1; Est GFR (Non-African American) 80.3; Potassium 2.9 mmol/L (3.5-5.1)
[2019-03-03 15:30] LABS: Albumin Globulin Ratio 0.6 (0.9-2); Bilirubin,Total 0.3 mg/dl (0.2-1); Globulin 4.3 gm/dl (2.5-4.0); Total Protein 7.1 gm/dl (6.4-8.2)
--- NOTE | 2019-03-03 16:36 | CT Scan Report ---
CT SCAN OF THE LUMBAR SPINE WITHOUT IV CONTRAST CLINICAL HISTORY: Low back pain. COMPARISON STUDY: Intraoperative lumbar spine radiographs dated 01/25/2019. TECHNIQUE: CT scan of lumbar spine is performed from the lower thoracic spine to the sacrum. Images a re reviewed in the axial, sagittal, and coronal planes. IV contrast was not administered for this exa mination. The examination is degraded by streak artifact from metallic spinal hardware. A dose loweri ng technique was utilized adhering to the principles of ALARA. CT DOSE: 630.22 mGy.cm FINDINGS: The skeletal structures are osteopenic. Vertebral body height is maintained throughout the lumbar spi ne. There is 4 mm of anterolisthesis at L4-L5 and 6 mm of anterolisthesis at L5-S1. Alignment is othe rwise preserved. Mild hyperlordosis is noted. There are postoperative changes from laminectomy and po sterior fusion seen from L4 -S1. The orthopedic hardware appears intact. Anterior osteophytes are see n throughout. There are bilateral transverse process fractures of L5. There is significant lucency id entified around the ventricular screws at S1. Both screws extend beyond the sacral cortex by approxim ately 1 cm. There has been discectomy at L4-L5 and L5-S1. The L5-S1 disc appears to have slipped post eriorly and impinges on the central canal. This is difficult to assess due to significant streak kenneth fact. There is significant endplate erosion/destruction identified at L5-S1, with evidence of fractur e involving the superior endplate of S1. Significant surrounding soft tissue inflammation is identifi ed. Mild erosive change at L4-L5 likely represents osteolysis. Moderate disc space narrowing is seen at L2-L3 and L3-L4. Moderate to advanced disc space narrowing is noted at L1-L2. Small posterior disc osteophyte complexes are seen at L1-L2 and L2-L3. There is no evidence of large disc herniation at t hese levels. Postoperative change and edema is identified within the posterior paraspinous soft tissu es from L4 to S1. No organized fluid collection is identified on this unenhanced examination. There i s minimal atherosclerotic calcification of the abdominal aorta which is normal in caliber. There is a 4 mm nonobstructing right renal calculus. No retroperitoneal adenopathy is seen. IMPRESSION: 1. There are postoperative changes from laminectomy and posterior fusion seen from L4-S1. 2. There are bilateral transverse process fractures of L5. 3. There is posterior slippage of the L5-S1 disc spacer which likely encroaches upon the central kathy l. This is difficult to assess due to significant streak artifact. 4. There is lucency identified around the interpedicular screws of S1. Additionally, there is signifi cant erosive/destructive endplate change identified at L5-S1, with fracture involving the superior en dplate of S1 and surrounding soft tissue edema. Although this could represent postoperative change an d osteolysis, the appearance is highly concerning for osteomyelitis at this level. Clinical correlati on will be essential. 5. Mild erosive change at the L4-L5 endplates likely represents postoperative osteolysis. 6. No organized fluid collection is seen on this unenhanced examination. 7. Right-sided nephrolithiasis. Electronically signed by: Jerry Hyde M.D. 03/03/2019 4:34 PM
[2019-03-03] MEDS ORDERED: POTASSIUM CHLORIDE 20 MEQ TABCR PO STA (20:24)
[2019-03-03] MEDS: DOCUSATE SODIUM 100 MG CAP PO SCH (21:01)
[2019-03-03] MEDS ORDERED: PRAMIPEXOLE DIHYDROCHLO 0.25 MG TAB PO SCH (22:15)
[2019-03-03] MEDS ORDERED: DULOXETINE HCL 20 MG CAP PO SCH (22:15)
[2019-03-03] MEDS: GABAPENTIN 300 MG CAP PO SCH ×2 (22:15→22:18)
[2019-03-03] MEDS: ATORVASTATIN 10 MG TAB PO SCH (22:16)
[2019-03-04] MEDS: LACTATED RINGER'S 1,000 ML IV SCH ×3 (02:11→20:12)
[2019-03-04] MEDS: OXYCODONE/ACETAMINOPHEN 5mg/325mg TAB PO PRN ×2 (02:11→16:30)
[2019-03-04] MEDS ORDERED: CLINDAMYCIN 600 MG/54 ML BAG IV SCH (06:00)
[2019-03-04] MEDS ORDERED: BUPIVACAINE/EPINEPHRINE 0.5% MPF 1:200,000 30 ML VIAL ONE (06:59)
[2019-03-04] MEDS ORDERED: BACITRACIN INJ 50,000 UNIT VIAL ONE (07:00)
[2019-03-04] MEDS ORDERED: GENTAMICIN SULFATE 40 MG/ML 2 ML VIAL ONE (07:00)
[2019-03-04] MEDS ORDERED: VANCOMYCIN HCL 1000MG/20ML VIAL ONE (07:00)
[2019-03-04] MEDS ORDERED: ePHEDrine sulfate 50 MG/ML AMP IV PRN (07:09)
[2019-03-04] MEDS ORDERED: ATROPINE SULFATE 0.1 MG/ML 10ML SYR IV PRN (07:09)
[2019-03-04] MEDS ORDERED: ONDANSETRON INJ 2 MG/ML 2 ML VIAL IV PRN ×2 (07:09→12:09)
[2019-03-04 07:13] LABS: BUN Creatinine Ratio 10.3 (10-20); Calcium 8.9 mg/dl (8.5-10.1); Creatinine Clr Calc Pharmacy 79.7 ml/min; Est GFR (African American) 97.6; Est GFR (Non-African American) 84.2; Potassium 3.5 mmol/L (3.5-5.1)
[2019-03-04] MEDS ORDERED: MIDAZOLAM HCL 1 MG/ML 2ML VIAL ONE (07:17)
[2019-03-04] MEDS ORDERED: fentaNYL citrate 100 MCG/2 ML VIAL ONE ×2 (07:17→09:20)
[2019-03-04] MEDS ORDERED: LIDOCAINE 2% JELLY 5 ML TUBE ONE (07:19)
--- NOTE | 2019-03-04 07:31 | History & Physical Report ---
Date of Service March 04, 2019 Assessment & Plan (1) Postoperative back pain: At this time we will plan for exploration of fusion and possible removal of instrumentation L4-5 L5-S1. Present on Admission?: Yes History of Present Illness Chief Complaint: Postoperative back pain Primary Care Provider: Miguel A Carney This is a 63-year-old female status post lumbar decompression fusion. She had done very nicely postoperatively but as the past week declined significantly. She was seen in our office yesterday imaging of the lumbar spine demonstrates posterior migration of the interbody construct at L5-S1. Subsequently elected to admit the patient for further work-up and exploration of hardware and possible removal of implant. Allergies Allergy/AdvReac Type Severity Reaction Status Date / Time latex Allergy PROLONGED Verified 01/25/19 06:09 EXPOSURE TO LATEX BANDAIDE, RASH moxifloxacin [From Avelox] Allergy Rash Verified 01/25/19 06:09 Penicillins Allergy Rash Verified 01/25/19 06:09 Home Medications Home Medications Medication Instructions Recorded Confirmed Type atorvastatin [Lipitor] 10 mg PO PM 01/10/19 01/25/19 History calcium carbonate [Calcium 500] 500 mg PO BID 01/10/19 01/25/19 History chlorthalidone 25 mg PO QAM 01/10/19 01/25/19 History duloxetine [Cymbalta] 60 mg PO QPM 01/10/19 01/25/19 History eszopiclone [Lunesta] 3 mg PO HS 01/10/19 01/25/19 History fexofenadine [Chiara Allergy] 180 mg PO QAM PRN 01/10/19 01/25/19 History gabapentin 300 mg PO QID 01/10/19 01/25/19 History levothyroxine [Synthroid] 150 mcg PO QAM 01/10/19 01/25/19 History losartan 100 mg PO QAM 01/10/19 01/25/19 History multivitamin 1 cap PO QAM 01/10/19 01/25/19 History pramipexole [Mirapex] 0.25 mg PO PM 01/10/19 01/25/19 History sertraline [Zoloft] 25 mg PO DAILY 01/10/19 01/25/19 History oxycodone 5 mg PO Q4H PRN #30 tab 01/26/19 Rx tramadol 50 mg PO Q4H PRN #30 tab 01/26/19 Rx Past Med/Surg History Medical History Chronic back pain PAIN RADIATING DOWN B/L LEGS. WORSE IN RIGHT. Degenerative disc disease Depression PT'S SPOUSE A LITTLE OVER A YEAR AGO. Fibromyalgia GERD (gastroesophageal reflux disease) DIET CONTROLLED Hyperlipidemia Hypertension Hypothyroidism Osteoarthritis Rheumatoid arthritis DIAGNOSED "SEVERAL YEARS AGO", PATIENT NOT ON ANY MEDICATIONS FOR RA. WAS ON MTX FOR A WHILE BUT D/C'D BECAUSE IT DIDN'T HELP. Sleep apnea TOLD SHE HAD SLEEP APNEA "MANY YEARS AGO", PT STATES SHE WAS NEVER PRESCRIBED A DEVICE AND DOES NOT HAVE ANY ISSUES. Surgical History History of bilateral tubal ligation History of foot surgery RT FOOT. PT STATES PLASTIC HARDWARE WAS PLACED. 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 She does have reasonable strength testing bilateral lower extremities. Sensory symmetric and intact. Incision is well-healed without erythema or drainage. Results & Data Vital Signs (Past 12 Hours) Vital Signs Temp Pulse Resp BP Pulse Ox 03/04/19 07:13 37.1 C 113 H 18 150/82 H 96 03/04/19 06:50 36.7 C 115 H 14 153/79 H 94 03/03/19 23:08 37.2 C 90 14 124/68 93
[2019-03-04] MEDS ORDERED: DEXAMETHASONE SOD INJ 4 MG/ML VIAL ONE (08:59)
[2019-03-04] MEDS ORDERED: ROCURONIUM BROMIDE 10 MG/ML 5 ML VIAL ONE (08:59)
[2019-03-04] MEDS ORDERED: ONDANSETRON INJ 2 MG/ML 2 ML VIAL ONE (08:59)
[2019-03-04] MEDS ORDERED: NEOSTIGMINE METHYLSULFATE 1 MG/ML 10ML VIAL ONE (08:59)
[2019-03-04] MEDS ORDERED: GLYCOPYRROLATE 0.2 MG/ML VIAL ONE (08:59)
[2019-03-04] MEDS ORDERED: PROPOFOL IV EMULSION 10 MG/ML 20 ML VIAL IV ONE ×2 (08:59→09:21)
[2019-03-04] MEDS ORDERED: LIDOCAINE HCL 2% 2 ML VIAL/AMP(20MG/ML) INFIL ONE (08:59)
[2019-03-04] MEDS ORDERED: HYDROmorphone INJ 2 MG/ML SYR/VIAL ONE (09:21)
[2019-03-04] MEDS: GABAPENTIN 300 MG CAP PO SCH ×2 (09:37→12:34)
[2019-03-04] MEDS: DOCUSATE SODIUM 100 MG CAP PO SCH ×2 (09:37→21:20)
[2019-03-04] MEDS ORDERED: FLOSEAL HEMOSTATIC MATRIX 10ML TOP ONE (09:59)
--- NOTE | 2019-03-04 10:42 | Operative Report ---
Post Operative Report Pre & Post Diagnosis Operation Date: 03/04/19 07:45 Pre-Op Diagnosis: Sacral fracture with displacement of interbody cage L5-S1 Post-Op Diagnosis: Same Procedure Operation Date: 03/04/19 07:45 Actual Procedures #1 removal of posterior instrumentation L4-5 L5-S1. #2 reposition of interbody cage at L5-S1. #3 revision decompression L5-S1. #4 bilateral open SI joint fusions. #5 placement of bilateral iliac bolts. #6 replacement of S1 pedicle screws. #7 placement infuse collagen sponge acquired Ozment and bilateral SI joints. #8 placement of stimulant beads impregnated with vancomycin and tobramycin in the operative bed. Surgeon Matt Antunez, DO Quality Assurance Manager None Estimated Blood Loss 100 Findings Consistent with Post-Op Diagnosis Specimens None Indications This is a 63-year-old female well-known to me that presents with marked decline in status. Imaging of the lumbar spine by way of CAT scan demonstrates displacement of interbody cage L5-S1 with fracture of the superior endplate S1. In light of her severe pain elected to go the above-mentioned procedure. Description of Procedure Patient was met with identified and informed consent obtained. She was then taken to the operative suite and underwent intubation and placed in a prone position Tavo table on top of the Luke frame. All bony prominences well- padded eyes inspected to ensure no external pressure placed upon. This point performed several x-rays of fluoroscopy identifying marked loosening of the interbody cage at L5-S1. Sharp dissection with the assistance of Bovie cautery was performed down to and exposing the instrumentation at L4-L5 and S1 levels bilaterally. I then proceeded to remove the rods bilaterally as well as the bilateral S1 pedicle screws as they were grossly loose. Then proceeded to place bilateral iliac bolts then burred out the bilateral SI joints to subcortical bleeding bone. 8.5 x 35 pedicle screws were then placed bilaterally and S1 level. They demonstrated very tight fit and no further loosening appreciated. Then performed revision decompression L5-S1 removing any remaining facet on the right and identified the protruding peek cage. It was noticeably loose and I repositioned it in the anterior portion of the interbody space. Rayle much more secure at this location. New rods were then contoured and locked into position bilaterally. This included compression across the 5 1 level. Infuse collagen sponge mass graft was then stuffed in the bilateral SI joints. 15 round DAVID drain inserted. Approximately 5 cc of stimulant beads impregnated with vancomycin Terramycin sprinkled throughout the operative bed. The incision was then closed with 1 Vicryl fascia 2-0 Vicryl subcutaneous and 4 Monocryl for final skin closure. Steri-Strip sterile dressings placed. Patient will continue PACU stable condition. I attest to the content of the Intraoperative Record and any orders documented therein. Any exceptions are noted below.
--- NOTE | 2019-03-04 10:46 | Fluoroscopy Report ---
FL lumbar spine 2-3V CLINICAL HISTORY: 63 years-old Female presenting with INCISION AND DRAINAGE L5-S1 HARDWARE REMOVAL. TECHNIQUE: 4 fluoroscopic image(s) recorded as part of an intraoperative procedure. COMPARISON: CT from 03/03/2019. FINDINGS/IMPRESSION: Posterior bilateral transpedicular screw soheila fixation of and L4-S1 on the prior exam has been extende d to bridge the bilateral sacroiliac joints. Laminectomy defects at L4-L5. Body spacers in place at L 4-5 and L5-S1 as on prior exam. Please see surgical report for further details. Fluoroscopy dosage (mGy): 31.16. Fluoroscopy time: 40.7 seconds. Number or time of high level fluoroscopy (HLF), digital spot, or digital subtraction images: 0. Electronically signed by: Wander Bullard M.D. 03/04/2019 10:45 AM
[2019-03-04] MEDS: fentaNYL citrate 100 MCG/2 ML VIAL IV PRN ×4 (10:52→11:10)
[2019-03-04] MEDS: HYDROmorphone INJ 1 MG/ML SYRINGE IV PRN ×2 (11:20→11:25)
--- NOTE | 2019-03-04 11:52 | Anesthesiology Progress Note ---
Date of Service March 04, 2019 Anesthesia Post Procedure Vital Signs Vital Signs: Temp Pulse Pulse Pulse Resp BP BP 03/04/19 11:37 98.6 F 03/04/19 11:30 105 H 14 138/60 03/04/19 11:25 105 H 12 162/72 H 03/04/19 11:21 114 H 16 132/72 03/04/19 11:20 108 H 18 03/04/19 11:15 104 H 14 157/82 H 03/04/19 11:11 83 14 139/80 03/04/19 11:10 101 H 14 03/04/19 11:05 70 16 168/68 H 03/04/19 11:00 99 H 14 159/63 H 03/04/19 10:56 69 14 144/59 H 03/04/19 10:55 103 H 17 03/04/19 10:51 71 14 150/79 H 03/04/19 10:50 99 H 14 03/04/19 10:45 88 14 160/61 H 03/04/19 10:42 99.3 F 105 H 87 15 159/75 H 159/75 H 03/04/19 07:13 98.8 F 113 H 18 150/82 H 03/04/19 06:50 98.1 F 115 H 14 153/79 H 03/03/19 23:08 99.0 F 90 14 124/68 03/03/19 14:57 98.1 F 86 16 105/67 03/03/19 13:00 98.8 F 16 135/77 Pulse Ox 03/04/19 11:37 98 03/04/19 11:30 99 03/04/19 11:25 99 03/04/19 11:21 100 03/04/19 11:20 100 03/04/19 11:15 99 03/04/19 11:11 100 03/04/19 11:10 99 03/04/19 11:05 98 03/04/19 11:00 98 03/04/19 10:56 100 03/04/19 10:55 99 03/04/19 10:51 100 03/04/19 10:50 100 03/04/19 10:45 100 03/04/19 10:42 99 03/04/19 07:13 96 03/04/19 06:50 94 03/03/19 23:08 93 03/03/19 14:57 94 03/03/19 13:00 94 Pain Intensity Back: Pain Intensity: 6 Transfer of Care Handoff Completed per policy Notes Mental Status: alert / awake / arousable and participated in evaluation Patient Amnestic to Procedure: Yes Nausea / Vomiting: adequately controlled Pain: adequately controlled Airway Patency, RR, SpO2: stable & adequate BP & HR: stable & adequate Hydration State: stable & adequate Anesthetic Complications: no major complications apparent and Pt Satisfied with anesthetic care
[2019-03-04] MEDS ORDERED: PROMETHAZINE HCL 12.5 MG in SODIUM CHLORIDE 0.9% 50 ML IV PRN (12:09)
[2019-03-04] MEDS ORDERED: LORazepam 0.5 MG/1 ML VIAL IV PRN (12:09)
[2019-03-04] MEDS ORDERED: ONDANSETRON 4 MG TAB PO PRN (12:09)
[2019-03-04] MEDS ORDERED: HYDROmorphone INJ 0.5 MG/0.5 ML SYR IV PRN (12:09)
[2019-03-04] MEDS ORDERED: ACETAMINOPHEN 500 MG TAB PO PRN (12:09)
[2019-03-04] MEDS ORDERED: DO NOT ADMINISTER PNEUMOCOCCAL VACCINE PRN (12:09)
[2019-03-04] MEDS ORDERED: SOD PHOSPHATE/SOD BIPHOSPHATE ENEMA 132 ML BTL PR PRN (12:09)
[2019-03-04] MEDS ORDERED: DO NOT ADMINISTER FLU VACCINE PRN (12:09)
[2019-03-04] MEDS ORDERED: ALUMINUM/MAGNESIUM SUSP 30 ML UDC PO PRN (12:09)
[2019-03-04] MEDS ORDERED: METOCLOPRAMIDE HCL INJ 5 MG/ML 2 ML VIAL IV PRN (12:09)
[2019-03-04] MEDS ORDERED: BISACODYL 10 MG SUPP PR PRN (12:09)
[2019-03-04] MEDS ORDERED: FAMOTIDINE 20 MG TAB PO PRN (12:09)
[2019-03-04] MEDS ORDERED: ACETAMINOPHEN 1,000 MG/100 ML VIAL IV PRN (12:09)
[2019-03-04] MEDS ORDERED: MAGNESIUM HYDROXIDE SUSP 30 ML UDC PO PRN (12:09)
[2019-03-04] MEDS ORDERED: LORazepam 0.5 MG TAB PO PRN (12:09)
[2019-03-04] MEDS: OXYCODONE HCL IR 5 MG TAB (IMMEDIATE RELEASE) PO PRN (13:21)
--- NOTE | 2019-03-04 13:40 | Hospitalist Consultation ---
Date of Consultation March 04, 2019 Assessment & Plan (1) Spinal stenosis, lumbar region with neurogenic claudication: (2) Postoperative back pain: - POD#0 S/P removal and revision of hardware L4-L5 and L5-S1, revision of decompression at L5-S1, bilateral SI joint fusions by Dr. Antunez - activity and wound care orders as per ortho - pain control with bowel regimen - PT/OT - monitor H/H for acute blood loss anemia and transfuse blood products PRN - EBL 100 cc (3) Tachycardia: -Mild, heart rate in the low 100s -Likely secondary to mild postoperative dehydration/anxiety -Continue IVF -If persistent, consider further work-up (4) Hypertension: -BP controlled, continue losartan -Hold chlorthalidone for now, reevaluate in the morning (5) Hypothyroidism: -Continue levothyroxine (6) Hyperlipidemia: -Continue statin (7) Depression: (8) Fibromyalgia: -Continue duloxetine, sertraline (9) DVT prophylaxis: -Teds/SCDs as per spine orthopedics Thank you for this consultation. We will follow the patient with you during their hospital stay. You can reach a [facility] via pager @ [phone]. Supervising Physician Co-Signing Physician Notes 63-year-old female status post back surgery earlier today. Comorbidities include rheumatoid arthritis for which she is not on chronic therapy at this time, hypertension, fibromyalgia, depression, restless legs syndrome. She has undergone a revision surgery today and reports feeling improved from a pain standpoint. She reports extreme pain for the last 5 weeks and has tried various different medications including gabapentin, oxycodone, tramadol, Flexeril. She would like to come off some of these medications and understands the interaction potential. Gabapentin has not been taken at home in the last couple of weeks so this will be stopped. She is also taking Cymbalta and Zoloft. She was originally on Zoloft Cymbalta for chronic back pain and then was given the Zoloft after her 's passing last year. She reports however, that she was doing well with her 's passing and did not feel like she needed additional medication. We will stop the Zoloft at this time and encourage her to work with primary care regarding weaning off the Cymbalta slowly. We discussed that it is -recommended to pursue talk therapy with a psychologist, social work specialist or someone trained in stress management while taking an SSRI. She is also on pramipexole, which will be stopped at this time. Chlorthalidone has been held in the setting of low blood pressure postoperatively and while receiving fluids. She also reports chronic insomnia and takes Lunesta for this, which is on formulary. DISCHARGE RECOMMENDATIONS: stop gabapentin stop pramipexole stop sertraline cont Cymbalta and work with PCP to wean off slowly Doreen Poe DO [facility] History of Present Illness Reason for Consultation: Postop medical management Requesting Physician: Dr. Antunez Attending Physician: Dr. Poe History of Present Illness 63-year-old female who is status post removal and revision of hardware L4-L5 and L5-S1, revision of decompression at L5-S1, bilateral SI joint fusions. Patient underwent back surgery 01/2019 and was having progressive pain. Patient was found to have migration of hardware and presented for planned procedure today. Postoperatively, the patient is doing well. She reports low back pain and cramping in both of her thighs however pain is well controlled. No numbness, tingling, weakness to the bilateral lower extremities. She denies chest pain shortness of breath. No lightheadedness and dizziness. No abdominal pain or nausea. Currie catheter is in place draining clear yellow urine. Allergies Allergy/AdvReac Type Severity Reaction Status Date / Time latex Allergy PROLONGED Verified 01/25/19 06:09 EXPOSURE TO LATEX BANDAIDE, RASH moxifloxacin [From Avelox] Allergy Rash Verified 01/25/19 06:09 Penicillins Allergy Rash Verified 01/25/19 06:09 Home Medications Home Medications Medication Instructions Recorded Confirmed Type atorvastatin [Lipitor] 10 mg PO PM 01/10/19 03/04/19 History calcium carbonate [Calcium 500] 500 mg PO BID 01/10/19 03/04/19 History chlorthalidone 12.5 mg PO QAM 01/10/19 03/04/19 History duloxetine [Cymbalta] 60 mg PO QPM 01/10/19 03/04/19 History eszopiclone [Lunesta] 3 mg PO HS 01/10/19 03/04/19 History fexofenadine [Chiara Allergy] 180 mg PO QAM PRN 01/10/19 03/04/19 History levothyroxine [Synthroid] 150 mcg PO MOWEFR 01/10/19 03/04/19 History losartan 100 mg PO QAM 01/10/19 03/04/19 History multivitamin 1 cap PO QAM 01/10/19 03/04/19 History pramipexole [Mirapex] 0.25 mg PO QDL 01/10/19 03/04/19 History sertraline [Zoloft] 25 mg PO DAILY 01/10/19 03/04/19 History oxycodone 5 mg PO Q4H PRN #30 tab 01/26/19 03/04/19 Rx tramadol 50 mg PO Q4H PRN #30 tab 01/26/19 03/04/19 Rx levothyroxine 75 mcg PO SUTUTHSA 03/04/19 03/04/19 History Patient History Medical History Hyperlipidemia (Chronic) Hypertension (Chronic) Sleep apnea (Chronic) TOLD SHE HAD SLEEP APNEA "MANY YEARS AGO", PT STATES SHE WAS NEVER PRESCRIBED A DEVICE AND DOES NOT HAVE ANY ISSUES. Hypothyroidism (Chronic) Depression (Chronic) PT'S SPOUSE A LITTLE OVER A YEAR AGO. GERD (gastroesophageal reflux disease) (Chronic) DIET CONTROLLED Chronic back pain (Chronic) PAIN RADIATING DOWN B/L LEGS. WORSE IN RIGHT. Degenerative disc disease (Chronic) Fibromyalgia (Chronic) Rheumatoid arthritis (Chronic) DIAGNOSED "SEVERAL YEARS AGO", PATIENT NOT ON ANY MEDICATIONS FOR RA. WAS ON MTX FOR A WHILE BUT D/C'D BECAUSE IT DIDN'T HELP. Osteoarthritis (Chronic) Surgical History History of bilateral tubal ligation (Chronic) History of repair of rotator cuff (Chronic) History of sinus surgery (Chronic) History of foot surgery (Chronic) RT FOOT. PT STATES PLASTIC HARDWARE WAS PLACED. Social History Preferred Language: Portuguese Communication Ability: Effective Electrical Drafter Required: No Beliefs That Will Affect Care: None marital status: Single Current Living Situation: Alone Other Information That Helps Us Care for You: No Feels Safe at Home: Yes Safety Concerns: Feels Safe At This Time Smoking Status: Never smoker Cigarettes Per Day: 0 Second Hand Exposure: No Hx Alcohol Use: Yes Alcohol type: beer and wine Hx Substance Use: No Review of Systems Review of Systems: ROS per HPI, all other systems reviewed and negative Physical Exam Constitutional: WD/WN, vitals as above Eyes: PERRL, conjunctivae normal, anicteric sclerae ENMT: external ear and nose normal, oropharynx normal Respiratory: normal respiratory effort, lungs clear to auscultation Cardiovascular: Rate/Rhythm: regular rhythm and + tachycardic (Heart rate low 100s) Vessels: normal peripheral pulses Extremities: no edema Gastrointestinal (Abdomen): normal bowel sounds, soft, nontender, no hepatosplenomegaly Musculoskeletal: no cyanosis or clubbing, extremities motor strength 5/5 S/P back surgery, drain in place draining bloody drainage, pedal pushes and pulls strong bilaterally Skin: no rashes, warm and dry Neurologic: PERRL, EOMI, accommodation nl, no face palsy, no dysarthria Psychiatric: A+Ox3, euthymic affect Results & Data Vital Signs (Past 12 Hours) Vital Signs Temp Pulse Pulse Pulse Resp BP BP 03/04/19 13:17 87 18 103/66 03/04/19 12:36 37.0 C 117 H 18 116/75 03/04/19 12:00 36.9 C 113 H 18 119/65 03/04/19 11:45 106 H 15 03/04/19 11:40 112 H 15 154/80 H 03/04/19 11:39 102 H 15 137/78 03/04/19 11:37 37.0 C 03/04/19 11:35 105 H 14 98/86 L 03/04/19 11:30 105 H 14 138/60 03/04/19 11:25 105 H 12 162/72 H 03/04/19 11:21 114 H 16 132/72 03/04/19 11:20 108 H 18 03/04/19 11:15 104 H 14 157/82 H 03/04/19 11:11 83 14 139/80 03/04/19 11:10 101 H 14 03/04/19 11:05 70 16 168/68 H 03/04/19 11:00 99 H 14 159/63 H 03/04/19 10:56 69 14 144/59 H 03/04/19 10:55 103 H 17 03/04/19 10:51 71 14 150/79 H 03/04/19 10:50 99 H 14 03/04/19 10:45 88 14 160/61 H 03/04/19 10:42 37.4 C 105 H 87 15 159/75 H 159/75 H 03/04/19 07:13 37.1 C 113 H 18 150/82 H 03/04/19 06:50 36.7 C 115 H 14 153/79 H Pulse Ox 03/04/19 13:17 97 03/04/19 12:36 96 03/04/19 12:00 95 03/04/19 11:45 97 03/04/19 11:40 97 03/04/19 11:39 99 03/04/19 11:37 98 03/04/19 11:35 100 03/04/19 11:30 99 03/04/19 11:25 99 03/04/19 11:21 100 03/04/19 11:20 100 03/04/19 11:15 99 03/04/19 11:11 100 03/04/19 11:10 99 03/04/19 11:05 98 03/04/19 11:00 98 03/04/19 10:56 100 03/04/19 10:55 99 03/04/19 10:51 100 03/04/19 10:50 100 03/04/19 10:45 100 03/04/19 10:42 99 03/04/19 07:13 96 03/04/19 06:50 94 Laboratory Results Short CBC 03/03/19 Range/Units 14:49 WBC 6.42 (4.8-10.8) K/uL Hgb 9.5 L (12.0-16.0) g/dL Hct 27.9 L (37-47) % Plt Count 404 H (130-400) K/uL BMP 03/03/19 03/04/19 03/04/19 14:49 06:43 06:43 Sodium 138 137 Potassium 2.9 L Cancelled 3.5 D Chloride 99 103 Carbon Dioxide 32 32 BUN 8 8 Creatinine 0.78 0.75 Glucose 100 H 101 H Calcium 10.1 8.9 Liver Function 03/03/19 Range/Units 14:49 Total Bilirubin 0.3 (0.2-1) mg/dl AST 13 L (15-37) U/L ALT 22 (12-78) U/L Alkaline Phosphatase 114 (45-117) U/L Albumin 2.8 L (3.4-5.0) gm/dl
[2019-03-04] MEDS: CLINDAMYCIN 600 MG in DEXTROSE 5% 50 ML IV SCH ×2 (16:31→23:57)
[2019-03-04] MEDS: ESZOPICLONE 3 MG TAB PO SCH (21:20)
[2019-03-04] MEDS: ATORVASTATIN 10 MG TAB PO SCH (21:20)
[2019-03-04] MEDS: CALCIUM CARBONATE 1250MG TAB PO SCH (21:20)
[2019-03-04] MEDS: DULOXETINE HCL 60 MG CAP PO SCH (21:20)
[2019-03-04] MEDS: DOCUSATE SODIUM/SENNA 50/8.6MG TAB PO SCH (21:20)
[2019-03-05] MEDS: OXYCODONE/ACETAMINOPHEN 5mg/325mg TAB PO PRN ×5 (00:10→23:22)
[2019-03-05] MEDS: CLINDAMYCIN 600 MG in DEXTROSE 5% 50 ML IV SCH (00:30)
[2019-03-05] MEDS: LACTATED RINGER'S 1,000 ML IV SCH (02:36)
[2019-03-05] MEDS: LEVOTHYROXINE SODIUM 75 MCG TABLET PO SCH (05:57)
[2019-03-05] MEDS: POLYETHYLENE (MIRALAX) 17 GM PACK PO SCH ×4 (05:57→23:23)
--- NOTE | 2019-03-05 08:07 | Orthopedic Progress Note ---
Date of Service March 05, 2019 Assessment & Plan (1) Spinal stenosis, lumbar region with neurogenic claudication: I have reviewed case with Dr. Antunez last evening. As far as physical therapy is concerned she will be bed to chair only with bathroom privileges. Must use a walker at all times. Maintain DAVID drain. Continue with DVT prophylaxis in the form of teds and SCDs. Continue with aggressive bowel regimen. Supervising Physician Co-Signing Physician Notes Dr. Matt Antunez Subjective Isa is postoperative day 1 revision decompression fusion L4-S1 including iliac bolts. She feels much better this morning. Has some anterior thigh pain. DAVID drain output 30 cc. No new complaints. Review of Systems Review of Systems: All systems reviewed & are unremarkable except as noted in HPI & below Physical Exam Physical Exam: Lying in bed in no obvious distress. Alert and oriented x3. Dressing is clean dry and intact. DAVID drain intact. Calves are soft nontender bilateral lower extremities. Constitutional: WD/WN, vitals as above Eyes: normal visual mcgrath by confrontation ENMT: external ear and nose normal, oropharynx normal Neck: normal visual inspection Respiratory: normal respiratory effort Cardiovascular: Vessels: dorsalis pedis pulses present Extremities: normal capillary refill Gastrointestinal (Abdomen): Inspection/Auscultation: abdomen normal to inspection Musculoskeletal: no cyanosis or clubbing, extremities motor strength 5/5 Extremities: strength 5/5 throughout Skin: no rashes, warm and dry Neurologic: patellar DTR's 2+ bilat, sensation intact normal touch/ pain/proprioception and moves all extremities Psychiatric: A+Ox3, euthymic affect Results & Data Vital Signs (Past 12 Hours) Vital Signs Temp Pulse Resp BP Pulse Ox 03/05/19 07:20 36.9 C 92 H 18 108/66 97 03/05/19 03:42 37.2 C 91 H 14 122/68 94 03/04/19 23:14 37.1 C 86 14 100/55 L 96 03/04/19 20:41 37 C 99 H 18 110/62 90
[2019-03-05 08:11] LABS: Basophils # (auto) 0.01 K/uL (0-0.2); Basophils % (auto) 0.1 %; Eosinophils # (auto) 0.05 K/uL (0-0.5); Eosinophils % (auto) 0.6 %; Hematocrit (blood only) 25.4 % (37-47); Hemoglobin 8.3 g/dL (12.0-16.0); Immature Granulocytes # (auto) 0.03 K/uL (0.00-0.02); Immature Granulocytes % (auto) 0.3 %; Lymphocytes # (auto) 1.31 K/uL (1.2-3.4); Lymphocytes % (auto) 14.5 %; Mean Corpuscular Hgb Conc 32.7 g/dL (32-36); Mean Corpuscular Volume 84.9 fL (80-100); Mean Platelet Volume 7.7 fL (7.4-10.4); Monocytes # (auto) 1.21 K/uL (0.11-0.59); Monocytes % (auto) 13.4 %; Neutrophils # (auto) 6.42 K/uL (1.4-6.5); Neutrophils % (auto) 71.1 %; Platelet Count 407 K/uL (130-400); RDW Coefficient of Variation 12.9 % (11.5-14.5); RDW Standard Deviation 39.6 fL (36.4-46.3); Red Blood Count 2.99 M/uL (4.2-5.4); White Blood Count 9.03 K/uL (4.8-10.8)
[2019-03-05] MEDS: MULTIVITAMIN TAB PO SCH (08:34)
[2019-03-05] MEDS: LOSARTAN POTASSIUM 50 MG TAB PO SCH (08:34)
[2019-03-05] MEDS: CALCIUM CARBONATE 1250MG TAB PO SCH ×2 (08:35→20:50)
[2019-03-05] MEDS: DOCUSATE SODIUM 100 MG CAP PO SCH ×2 (08:35→20:50)
[2019-03-05 08:37] LABS: BUN Creatinine Ratio 11.4 (10-20); Creatinine Clr Calc Pharmacy 101.3 ml/min; Est GFR (African American) 112.3; Est GFR (Non-African American) 96.9; Potassium 3.5 mmol/L (3.5-5.1)
[2019-03-05] MEDS ORDERED: SERTRALINE HCL 50 MG TABLET PO SCH (09:00)
[2019-03-05] MEDS ORDERED: PRAMIPEXOLE DIHYDROCHLO 0.25 MG TAB PO SCH (11:30)
--- NOTE | 2019-03-05 12:17 | Anesthesiology Progress Note ---
Date of Service March 05, 2019 Anesthesia Post Procedure Vital Signs Vital Signs: Temp Pulse Resp BP BP Pulse Ox 03/05/19 11:06 37.3 C 98 H 19 104/63 96 03/05/19 07:20 36.9 C 92 H 18 108/66 97 03/05/19 03:42 37.2 C 91 H 14 122/68 94 03/04/19 23:14 37.1 C 86 14 100/55 L 96 03/04/19 20:41 37 C 99 H 18 110/62 90 03/04/19 16:01 37 C 99 H 18 127/71 90 03/04/19 14:15 97 H 18 103/65 97 03/04/19 13:17 87 18 103/66 97 03/04/19 12:36 37.0 C 117 H 18 116/75 96 Pain Intensity Back: Pain Intensity: 6 Notes Mental Status: alert / awake / arousable and participated in evaluation Patient Amnestic to Procedure: Yes Nausea / Vomiting: see Notes below Pain: adequately controlled Airway Patency, RR, SpO2: stable & adequate BP & HR: stable & adequate Hydration State: stable & adequate Anesthetic Complications: no major complications apparent and Pt Satisfied with anesthetic care
--- NOTE | 2019-03-05 13:05 | Hospitalist Progress Note ---
Date of Service March 05, 2019 Assessment & Plan (1) Spinal stenosis, lumbar region with neurogenic claudication: (2) Postoperative back pain: - POD#1 S/P removal and revision of hardware L4-L5 and L5-S1, revision of decompression at L5-S1, bilateral SI joint fusions by Dr. Antunez -Patient reports improvement of back pain at surgical site, having radiation pain down to left anterior thigh -Cardiology following closely Continue PT OT ACUTE BLOOD LOSS ANEMIA Due to postoperative status, hemoglobin 8.3 Does not have any complaint of dizzy spell or lightheadedness Continue to monitor H&H Transfuse for hemoglobin drop more than 7, or at a high level if patient is symptomatic (3) Tachycardia: -Resolved heart rate stable, possible secondary to dehydration. Status H&H (4) Hypertension: -BP controlled, continue losartan Continue to hold chlorthalidone (5) Hypothyroidism: -Continue levothyroxine (6) Hyperlipidemia: -Continue statin (7) Depression: (8) Fibromyalgia: -Continue duloxetine, sertraline (9) DVT prophylaxis: -Teds/SCDs as per spine orthopedics Thank you for this consultation. We will follow the patient with you during their hospital stay. You [facility] via pager @ [phone]. Subjective Patient seen sitting on chair postoperative day 1 of revision decompression fusion L4-S1 including iliac bolts. Patient feels much better this morning. Have minimal discomfort on the back surgical site, Physical Exam Constitutional: WD/WN, vitals as above Eyes: PERRL, conjunctivae normal, anicteric sclerae Respiratory: normal respiratory effort, lungs clear to auscultation normal respiratory effort Auscultation: lungs clear to auscultation bilaterally Cardiovascular: Vessels: normal peripheral pulses and dorsalis pedis pulses present Extremities: normal capillary refill; no edema Gastrointestinal (Abdomen): normal bowel sounds, soft, nontender, no hepatosplenomegaly Inspection/Auscultation: abdomen normal to inspection Musculoskeletal: no cyanosis or clubbing, extremities motor strength 5/5 Extremities: strength 5/5 throughout Skin: no rashes, warm and dry Neurologic: patellar DTR's 2+ bilat, sensation intact and PERRL, EOMI, accommodation nl, no face palsy, no dysarthria normal touch/pain/proprioception and moves all extremities Psychiatric: A+Ox3, euthymic affect Results & Data Vital Signs (Past 12 Hours) Vital Signs Temp Pulse Resp BP BP Pulse Ox 03/05/19 11:06 37.3 C 98 H 19 104/63 96 03/05/19 07:20 36.9 C 92 H 18 108/66 97 03/05/19 03:42 37.2 C 91 H 14 122/68 94
[2019-03-05] MEDS: DULOXETINE HCL 60 MG CAP PO SCH (20:50)
[2019-03-05] MEDS: ATORVASTATIN 10 MG TAB PO SCH (20:50)
[2019-03-05] MEDS: ESZOPICLONE 3 MG TAB PO SCH (20:50)
[2019-03-05] MEDS: DOCUSATE SODIUM/SENNA 50/8.6MG TAB PO SCH (21:19)
[2019-03-06] MEDS: OXYCODONE/ACETAMINOPHEN 5mg/325mg TAB PO PRN ×4 (04:20→22:35)
[2019-03-06] MEDS: POLYETHYLENE (MIRALAX) 17 GM PACK PO SCH ×3 (05:23→18:17)
[2019-03-06] MEDS: LEVOTHYROXINE SODIUM 75 MCG TABLET PO SCH (05:24)
[2019-03-06 06:51] LABS: Hematocrit (blood only) 24.2 % (37-47); Mean Corpuscular Hgb Conc 33.1 g/dL (32-36); Mean Corpuscular Volume 84.6 fL (80-100); Mean Platelet Volume 7.7 fL (7.4-10.4); Platelet Count 374 K/uL (130-400); RDW Coefficient of Variation 12.9 % (11.5-14.5); RDW Standard Deviation 39.7 fL (36.4-46.3); Red Blood Count 2.86 M/uL (4.2-5.4); White Blood Count 9.26 K/uL (4.8-10.8)
[2019-03-06 07:33] LABS: BUN Creatinine Ratio 11.9 (10-20); Calcium 9.6 mg/dl (8.5-10.1); Creatinine Clr Calc Pharmacy 106.8 ml/min; Est GFR (African American) 114.2; Est GFR (Non-African American) 98.5
[2019-03-06] MEDS: OXYCODONE HCL IR 5 MG TAB (IMMEDIATE RELEASE) PO PRN ×2 (08:04→15:48)
--- NOTE | 2019-03-06 08:28 | Orthopedic Progress Note ---
Date of Service March 06, 2019 Assessment & Plan (1) Spinal stenosis, lumbar region with neurogenic claudication: I have reviewed case with Dr. Antunez last evening. As far as physical therapy is concerned she will be bed to chair only with bathroom privileges. Must use a walker at all times. Maintain DAVID drain. Continue with DVT prophylaxis in the form of teds and SCDs. Continue with aggressive bowel regimen. We have discussed discussed discharge planning. She is not interested in going to rehab. This might be too aggressive for her anyway. We have discussed pursuing home health consult. Her family is arranging bedside commode and a bed on the first floor. Her children live close to her and have off during the summer are planning on coming over to the house daily. Supervising Physician Co-Signing Physician Notes Dr. Matt Antunez Subjective Isa is postoperative day 2 removal once removal of instrumentation/re- instrumentation L4-S1, repositioning of L5-S1 cage and iliac bolts due to hardware failure and fracture. This morning she is very low back pain. She has some left anterior thigh pain and right lateral ankle pain. Overall states she is feeling much better. DAVID drain output is 90 cc. She is urinating without issue. She is ambling with a walker to the restroom and around the room without incident. Denies lightheadedness, dizziness, palpitations. Hemoglobin this morning is 8.0. Denies cardiac history. Review of Systems Review of Systems: All systems reviewed & are unremarkable except as noted in HPI & below Physical Exam Physical Exam: She sitting in a chair eating breakfast. No obvious distress. Alert and oriented x3. Constitutional: WD/WN, vitals as above Eyes: normal visual mcgrath by confrontation ENMT: external ear and nose normal, oropharynx normal Neck: normal visual inspection Respiratory: normal respiratory effort Cardiovascular: Vessels: dorsalis pedis pulses present Extremities: normal capillary refill Gastrointestinal (Abdomen): Inspection/Auscultation: abdomen normal to inspection Musculoskeletal: no cyanosis or clubbing, extremities motor strength 5/5 Extremities: strength 5/5 throughout Skin: no rashes, warm and dry Neurologic: patellar DTR's 2+ bilat, sensation intact normal touch/pain/proprioception and moves all extremities Psychiatric: A+Ox3, euthymic affect Results & Data Vital Signs (Past 12 Hours) Vital Signs Temp Pulse Resp BP Pulse Ox 03/06/19 07:43 36.7 C 89 18 129/78 95 03/05/19 23:00 37.4 C 97 H 14 130/75 94
[2019-03-06] MEDS: MULTIVITAMIN TAB PO SCH (09:12)
[2019-03-06] MEDS: DOCUSATE SODIUM 100 MG CAP PO SCH ×2 (09:12→21:02)
[2019-03-06] MEDS: CALCIUM CARBONATE 1250MG TAB PO SCH ×2 (09:12→21:03)
[2019-03-06] MEDS: LOSARTAN POTASSIUM 50 MG TAB PO SCH (09:12)
--- NOTE | 2019-03-06 14:06 | Hospitalist Progress Note ---
Date of Service March 06, 2019 Assessment & Plan (1) Spinal stenosis, lumbar region with neurogenic claudication: (2) Postoperative back pain: - POD#12 S/P removal and revision of hardware L4-L5 and L5-S1, revision of decompression at L5-S1, bilateral SI joint fusions by Dr. Antunez -Patient reports improvement of back pain at surgical site, having radiation pain down to left anterior thigh -orthopedics following closely Continue PT OT ACUTE BLOOD LOSS ANEMIA Due to postoperative status, hemoglobin 8.3- > 8 today Does not have any complaint of dizzy spell or lightheadedness Continue to monitor H&H Transfuse for hemoglobin drop more than 7( does not have any cardiac hx ) , or at a high level if patient is symptomatic (3) Tachycardia: -Resolved heart rate stable, possible secondary to dehydration. given IVF follow H&H (4) Hypertension: -BP controlled, continue losartan chlorthalidone will be resumed on Dc (5) Hypothyroidism: -Continue levothyroxine (6) Hyperlipidemia: -Continue statin (7) Depression: (8) Fibromyalgia: -Continue duloxetine, sertraline (9) DVT prophylaxis: -Teds/SCDs as per spine orthopedics Thank you for this consultation. We will follow the patient with you during their hospital stay. You can reach a member of the [facility] Hospitalist Team 30/03 via pager @ [phone]. Subjective Patient sitting on chair denies of any dizzy spell or lightheadedness back pain has improved still having occasional discomfort with radiation pain to ant thigh s/p revision decompression fusion L4-S1 including iliac bolts. Physical Exam Constitutional: WD/WN, vitals as above Eyes: PERRL, conjunctivae normal, anicteric sclerae normal visual mcgrath by confrontation ENMT: Mouth: no dentition abnormality Mallampati Class: III Neck: normal visual inspection Respiratory: normal respiratory effort, lungs clear to auscultation normal respiratory effort Auscultation: lungs clear to auscultation bilaterally Cardiovascular: Rate/Rhythm: regular rhythm and + tachycardic (Heart rate low 100s) Vessels: normal peripheral pulses and dorsalis pedis pulses present Extremities: normal capillary refill; no edema Gastrointestinal (Abdomen): normal bowel sounds, soft, nontender, no hepatosplenomegaly Inspection/Auscultation: abdomen normal to inspection Musculoskeletal: no cyanosis or clubbing, extremities motor strength 5/5 Extremities: strength 5/5 throughout Skin: no rashes, warm and dry Neurologic: patellar DTR's 2+ bilat, sensation intact and PERRL, EOMI, accommodation nl, no face palsy, no dysarthria normal touch/pain/proprioception and moves all extremities Psychiatric: A+Ox3, euthymic affect Results & Data Vital Signs (Past 12 Hours) Vital Signs Temp Pulse Resp BP Pulse Ox 03/06/19 07:43 36.7 C 89 18 129/78 95
[2019-03-06] MEDS: DULOXETINE HCL 60 MG CAP PO SCH (21:02)
[2019-03-06] MEDS: ATORVASTATIN 10 MG TAB PO SCH (21:03)
[2019-03-06] MEDS: DOCUSATE SODIUM/SENNA 50/8.6MG TAB PO SCH (21:03)
[2019-03-06] MEDS: ESZOPICLONE 3 MG TAB PO SCH (21:03)
[2019-03-07] MEDS: POLYETHYLENE (MIRALAX) 17 GM PACK PO SCH ×3 (00:18→12:18)
[2019-03-07 06:26] LABS: Hematocrit (blood only) 24.6 % (37-47); Hemoglobin 8.2 g/dL (12.0-16.0)
[2019-03-07] MEDS ORDERED: LEVOTHYROXINE SODIUM 150 MCG TABLET PO SCH (06:30)
--- NOTE | 2019-03-07 07:29 | Orthopedic Progress Note ---
Date of Service March 07, 2019 Assessment & Plan (1) Spinal stenosis, lumbar region with neurogenic claudication: With her postoperative blood loss anemia, this is stable. She is asymptomatic and has no cardiac history. We will continue bed to chair and ambulation within her room only. She has bathroom privileges. I will order a and Occupational Therapy consult as she is considering transfer to SNF versus acute rehab. Will reconsult with case management to get options from the patient as possible discharge facilities that she would like to go to. Would also like to start authorization process. Supervising Physician Co-Signing Physician Notes Dr. Matt Antunez Subjective Patient's postoperative day 3 removal of instrumentation L4-S1, re- instrumentation L4-S1 including bilateral iliac bolts and repositioning of interbody cage L5-S1. She describes her back pain is stiffness. It is tolerable. Has some left anterior thigh pain which is improving. Right ankle pain has resolved. She is voiding without issue. H&H are 8 0.2 and 24.6 respectively this morning. DAVID drain output is 20 cc over the last shift. She is now considering referral to acute rehab versus SNF due to the fact that she lives at home alone. Patient seen sitting on chair postoperative day 1 of revision decompression fusion L4-S1 including iliac bolts. Patient feels much better this morning. Have minimal discomfort on the back surgical site, Review of Systems Review of Systems: All systems reviewed & are unremarkable except as noted in HPI & below Physical Exam Physical Exam: She is resting in a chair. No obvious distress. Alert and oriented x3. Lumbar dressing is clean dry and intact. DAVID drain intact. Calves are soft nontender bilaterally. JESSICA hose intact bilateral lower extremity's. Motor testing is 5 5 bilateral EHL, dorsiflexion, plantar flexion, quadriceps, hamstrings. Neurovascular intact bilateral lower extremities. Constitutional: WD/WN, vitals as above Eyes: normal visual mcgrath by confrontation ENMT: external ear and nose normal, oropharynx normal Neck: normal visual inspection Respiratory: normal respiratory effort Cardiovascular: Vessels: dorsalis pedis pulses present Extremities: normal capillary refill Gastrointestinal (Abdomen): Inspection/Auscultation: abdomen normal to insp ection Musculoskeletal: no cyanosis or clubbing, extremities motor strength 5/5 Extremities: strength 5/5 throughout Skin: no rashes, warm and dry Neurologic: patellar DTR's 2+ bilat, sensation intact normal touch/pain/proprioception and moves all extremities Psychiatric: A+Ox3, euthymic affect Results & Data Vital Signs (Past 12 Hours) Vital Signs Temp Pulse Resp BP BP Pulse Ox 03/06/19 23:57 36.8 C 94 H 15 89/56 L 99/62 L 97
[2019-03-07] MEDS: OXYCODONE/ACETAMINOPHEN 5mg/325mg TAB PO PRN ×4 (07:51→20:05)
[2019-03-07] MEDS: LOSARTAN POTASSIUM 50 MG TAB PO SCH (07:53)
[2019-03-07] MEDS: MULTIVITAMIN TAB PO SCH (07:53)
[2019-03-07] MEDS: CALCIUM CARBONATE 1250MG TAB PO SCH ×2 (07:53→20:06)
[2019-03-07] MEDS: DOCUSATE SODIUM 100 MG CAP PO SCH ×2 (07:53→20:06)
--- NOTE | 2019-03-07 08:40 | Anesthesiology Progress Note ---
Date of Service March 07, 2019 Anesthesia Post Procedure Vital Signs Vital Signs: Temp Pulse Resp BP BP Pulse Ox 03/07/19 07:36 37 C 98 H 17 113/70 91 03/06/19 23:57 36.8 C 94 H 15 89/56 L 99/62 L 97 03/06/19 15:25 37.1 C 113 H 16 111/66 94 Pain Intensity Back: Pain Intensity: 9 Notes Mental Status: alert / awake / arousable Patient Amnestic to Procedure: Yes Nausea / Vomiting: adequately controlled Pain: improving with treatment (pain medication works pt is due for pain medication at this time; ) Airway Patency, RR, SpO2: stable & adequate BP & HR: stable & adequate Hydration State: stable & adequate Neuraxial Anesthesia: was administered Anesthetic Complications: no major complications apparent
[2019-03-07] MEDS ORDERED: Nursing to Pharmacy Communication ONE (12:04)
--- NOTE | 2019-03-07 18:10 | Hospitalist Progress Note ---
Date of Service March 07, 2019 Assessment & Plan (1) Spinal stenosis, lumbar region with neurogenic claudication: POD #3. (2) Hypertension: Continue losartan. Resume chlorthalidone. (3) Hypothyroidism: Continue levothyroxine. (4) Fibromyalgia: Continue usual meds. (5) Acute blood loss anemia: Hgb 10.9 preop --> --> 8.2. Acute blood loss anemia. Hgb stabilized. Asymptomatic. No need for transfusion per current guidelines. (6) DVT prophylaxis: Per Ortho protocol. (7) Encounter for consultation: Thank you for this consultation. We will follow the patient with you during their hospital stay. My cell # is [phone]. You can reach a member of the [facility] Medicine Team 30/03 via pager @ [phone]. Subjective Recheck for medical management. Patient seen in her room around 11:10. Sitting in chair at bedside. Doing well postoperatively. No chest pain No cough or SOB. Nausea or vomiting. Passing flatus and stool. Voiding without difficulty. Postop pain better controlled. Physical Exam Constitutional: no acute distress Respiratory: no respiratory distress Auscultation: lungs clear to auscultation bilaterally Cardiovascular: Rate/Rhythm: regular rate and regular rhythm Vessels: no JVD Extremities: no calf tenderness and no edema Gastrointestinal (Abdomen): normal bowel sounds, soft, nontender, no hepatosplenomegaly Skin: no rashes, warm and dry Psychiatric: Orientation: alert and oriented x 3 Results & Data Vital Signs (Past 12 Hours) Vital Signs Temp Pulse Resp BP Pulse Ox 03/07/19 15:06 36.7 C 87 19 115/68 100 03/07/19 07:36 37 C 98 H 17 113/70 91 Laboratory Results Laboratory Results - last 24 hr 03/07/19 05:58 Hgb 8.2 L Hct 24.6 L
[2019-03-07] MEDS: ATORVASTATIN 10 MG TAB PO SCH (20:06)
[2019-03-07] MEDS: DOCUSATE SODIUM/SENNA 50/8.6MG TAB PO SCH (20:06)
[2019-03-07] MEDS: DULOXETINE HCL 60 MG CAP PO SCH (20:06)
[2019-03-07] MEDS: ESZOPICLONE 3 MG TAB PO SCH (21:49)
[2019-03-08] MEDS: OXYCODONE/ACETAMINOPHEN 5mg/325mg TAB PO PRN ×3 (00:15→12:46)
[2019-03-08] MEDS: LEVOTHYROXINE SODIUM 75 MCG TABLET PO SCH (05:41)
--- NOTE | 2019-03-08 07:28 | Discharge Summary ---
Date of Service March 08, 2019 Admission HPI Per Admitting Provider This is a 63-year-old female status post lumbar decompression fusion. She had done very nicely postoperatively but as the past week declined significantly. She was seen in our office yesterday imaging of the lumbar spine demonstrates posterior migration of the interbody construct at L5-S1. Subsequently elected to admit the patient for further work-up and exploration of hardware and possible removal of implant. Admission Exam (Per Admitting) Constitutional WD/WN, vitals as above Eyes normal visual mcgrath by confrontation ENMT external ear and nose normal, oropharynx normal Neck normal visual inspection Respiratory normal respiratory effort Cardiovascular Vessels: dorsalis pedis pulses present Extremities: normal capillary refill Gastrointestinal (Abdomen) Inspection/Auscultation: abdomen normal to inspection Musculoskeletal no cyanosis or clubbing, extremities motor strength 5/5 Extremities: strength 5/5 throughout Skin no rashes, warm and dry Neurologic patellar DTR's 2+ bilat, sensation intact normal touch/pain/proprioception and moves all extremities Psychiatric A+Ox3, euthymic affect Discharge Data Consultations 03/03/19 12:29 Consult Anesthesiology Routine 03/04/19 11:28 Consult Hospitalist Routine 03/04/19 12:09 Consult Case Management - Discharge Planning Routine 03/06/19 08:22 Consult Case Management - Discharge Planning Routine Procedures Performed Operation Date: 03/04/19 07:45 Actual Procedures p removal of posterior instrumentation L4-5 L5-S1. reposition of interbody cage at L5-S1. revision decompression L5-S1. bilateral open SI joint fusions. placement of bilateral iliac bolts. replacement of S1 pedicle screws. placement infuse collagen sponge acquired Ozment and bilateral SI joints. placement of stimulant beads - Matt Antunez DO Hospital Course (1) Spinal stenosis, lumbar region with neurogenic claudication: With her postoperative blood loss anemia, this is stable. She is asymptomatic and has no cardiac history. We will continue bed to chair and ambulation within her room only. She has bathroom privileges. I will order a and Occupational Therapy consult as she is considering transfer to SNF versus acute rehab. Will reconsult with case management to get options from the patient as possible discharge facilities that she would like to go to. Would also like to start authorization process. She was discharged home on postoperative day 4. This is with home health nursing. Discharge Instructions ACTIVITY RECOMMENDATIONS: SELF CARE INSTRUCTIONS AFTER THORACIC/LUMBAR FUSIONS 1. You may walk to your tolerance. It is good exercise for your legs and back. Expect some back and intermittent leg aches and pains. 2. You may perform "counter-top" level activities (make a sandwich, sandra with a project, etc.). 3. No bending or lifting of more than 10 pounds or back twisting of any nature (roll like a log when turning in bed). 4. You may ride in a car for 20-30 minutes at a time. No driving until after your first visit with your doctor. 5. Frequent changes of position and restricting sitting to 30 minutes at a time will help limit the amount of back spasms and stiffness you may experience. 6. You may discontinue the use of ambulatory aids (cane, crutches, etc.) once your strength and confidence allow. 7. You may leasing sales consultant the shower and let water strike your incision when you arrive home at least once daily. Do not take a tub bath, sit in a hot tub or go into a swimming pool until after your first recheck in the office. SPECIAL CARE INSTRUCTIONS: VERY IMPORTANT TO READ AND REVIEW A. Your surgical incision has been closed with a cosmetic suture under the skin that will dissolve in about 6 weeks. In 14 days, you can use a pair of clean scissors and cut the suture that is left outside of the skin at the ends of your incision. 1. The small skin tapes can be removed 7 days after surgery if they have not fallen off by that point. 2. You may keep the wound open to air as much as possible to promote healing after post-op day number 5 unless told otherwise by your doctor. 3. If you think the wound looks like it is becoming infected (redness or worsening drainage) and/or you are experiencing fever, chill or worsening back pain and muscle spasms, contact the office so that we may evaluate you as soon as possible. B. Complications are uncommon, but please contact us if you have any signs or symptoms of: 1. wound infection (fever higher than 102.5 degrees F, redness, separation of wound, drainage, or increasing pain from the incision) 2. blood clots in legs (pain, swelling, redness and warmth in legs) 3. urinary tract infection (fever higher than 102.5 degrees F, burning upon urination or increased frequency of urination) 4. nerve problems (inability to walk on your toes or heels, numbness, loss of bowel or bladder control) 5. any other symptoms that concern you C. Please call the office at if you have any concerns or questions about your operation or recovery. D. No smoking! Smoking drastically decreases the chance of a solid fusion. E. Do not take any anti-inflammatory medications (Indocin, Advil, Motrin, Aspirin, Naprosyn, etc.) as these may inhibit the chance of a solid fusion. Tylenol is okay to take for pain. MANAGING PAIN AFTER SPINAL SURGERY 1. Narcotic medication is intended for short-term use and will be provided for surgical pain. Surgical pain usually lasts for a period of 4-6 weeks. Narcotic medication includes Percocet, Vicodin, Darvocet, Tylenol #3 or Lortab. 2. Longer-term pain is more appropriately treated with non-narcotic medication such as Tylenol ES. 3. Muscle spasm is not appropriately treated with narcotics. Muscle relaxers such as Soma, Flexeril or Skelaxin can be used along with Tylenol ES. 4. Remember that we all live with some "aches and pains". This is not unusual or uncommon after an injury or as we get older. a. Back pain is expected and may include muscle spasms for 4 to 6 weeks after surgery. The pain should gradually improve. If the pain worsens for no apparent reason, please contact the office. b. Intermittent leg pain may also be experienced and should not be concerned about unless it worsens for no apparent reason. If so, please contact the office. 5. We will provide appropriate medication within the normal guidelines of their prescribed use. We will also be very cautious and aware of potential abuse and extended duration of patients' medication needs. a. Pain medications are for your comfort and to assist with sleep and rest so that the tissue can heal. They are not provided in order to return to normal activity and should not be used through the day. To do so or worsening pain at night can result from ongoing tissue damage and development of tolerance to the prescribed medicine. 6. Please allow 2-3 days to process refills. Prescriptions will not be mailed but must be picked up at the office. FOLLOW UP VISIT: Keep your scheduled follow-up appointment. Any questions, please call the office at . Bed to chair only. Short frequent walks with in the home only for activity. No lifting over 5 pounds. Supervising Physician Co-Signing Physician Notes Dr. Matt Antunez
--- NOTE | 2019-03-08 07:32 | Orthopedic Progress Note ---
Date of Service March 08, 2019 Assessment & Plan (1) Spinal stenosis, lumbar region with neurogenic claudication: business services representative met with the patient yesterday. She had briefly considered discharged to acute rehab. Now after discussing with her family she has chosen to return home with home health services. This has been arranged. We will discharge her home today. Supervising Physician Co-Signing Physician Notes Dr. Matt Antunez Subjective Patient sitting on chair denies of any dizzy spell or lightheadedness back pain has improved still having occasional discomfort with radiation pain to ant thigh s/p revision decompression fusion L4-S1 including iliac bolts. Review of Systems Review of Systems: All systems reviewed & are unremarkable except as noted in HPI & below Physical Exam Constitutional: WD/WN, vitals as above Eyes: normal visual mcgrath by confrontation ENMT: external ear and nose normal, oropharynx normal Neck: normal visual inspection Respiratory: normal respiratory effort Cardiovascular: Vessels: dorsalis pedis pulses present Extremities: normal capillary refill Gastrointestinal (Abdomen): Inspection/Auscultation: abdomen normal to inspection Musculoskeletal: no cyanosis or clubbing, extremities motor strength 5/5 Extremities: strength 5/5 throughout Skin: no rashes, warm and dry Neurologic: patellar DTR's 2+ bilat, sensation intact normal touch/pain/proprioception and moves all extremities Psychiatric: A+Ox3, euthymic affect Results & Data Vital Signs (Past 12 Hours) Vital Signs Temp Pulse Resp BP Pulse Ox 03/07/19 22:53 36.9 C 85 14 111/66 92
[2019-03-08] MEDS: MULTIVITAMIN TAB PO SCH (08:18)
[2019-03-08] MEDS: CALCIUM CARBONATE 1250MG TAB PO SCH (08:18)
[2019-03-08] MEDS: LOSARTAN POTASSIUM 50 MG TAB PO SCH (08:18)
[2019-03-08] MEDS: DOCUSATE SODIUM 100 MG CAP PO SCH (08:18)
--- NOTE | 2019-03-08 10:20 | Hospitalist Progress Note ---
Date of Service March 08, 2019 Assessment & Plan (1) Spinal stenosis, lumbar region with neurogenic claudication: POD #4 recovering well post op still have radiation pain /neurologic claudication on back to the thigh and anterior leg will benefit with continued Home Physical therapy by chief service observer made -home health arrangements made through [facility] evaluated by Ortho team stable to be discharged home today (2) Hypertension: BP stable Continue losartan. Resume chlorthalidone. (3) Hypothyroidism: Continue levothyroxine. (4) Fibromyalgia: Continue usual meds. (5) Acute blood loss anemia: Hgb 10.9 preop --> --> 8.2. Acute blood loss anemia. Hgb stabilized. Asymptomatic. No need for transfusion per current guidelines. (6) DVT prophylaxis: Per Ortho protocol. (7) Encounter for consultation: Thank you for this consultation. pt is medically stable to be discharged You can reach a member of the [facility] Medicine Team 30/03 via pager @ [phone]. Subjective s/p revision decompression fusion L4-S1 including iliac bolts. back pain has improved still experiencing radiation pain on back of thigh and occasional pain on left ant thigh evaluated by Ortho this AM stable to be discharged home today pt will benefit with Home Health and Home physical therapy -scripts will be given arrangements made for raised toilet / -as pt is unable to sit low due to radiation pain on thigh has rolling walker will rent Hospital bed to ease of getting in and out of bed during her recovery form lumber spine surgery Physical Exam Constitutional: WD/WN, vitals as above Eyes: PERRL, conjunctivae normal, anicteric sclerae normal visual mcgrath by confrontation ENMT: Mouth: no dentition abnormality Mallampati Class: III Neck: normal visual inspection Respiratory: normal respiratory effort, lungs clear to auscultation normal respiratory effort Auscultation: lungs clear to auscultation bilaterally Cardiovascular: Rate/Rhythm: regular rhythm and + tachycardic (Heart rate low 100s) Vessels: normal peripheral pulses and dorsalis pedis pulses present Extremities: normal capillary refill; no edema Gastrointestinal (Abdomen): normal bowel sounds, soft, nontender, no hepatosplenomegaly Inspection/Auscultation: abdomen normal to inspection Musculoskeletal: no cyanosis or clubbing, extremities motor strength 5/5 Extremities: strength 5/5 throughout Skin: no rashes, warm and dry Neurologic: patellar DTR's 2+ bilat, sensation intact and PERRL, EOMI, accommodation nl, no face palsy, no dysarthria normal touch/pain/proprioception and moves all extremities Psychiatric: A+Ox3, euthymic affect Results & Data Vital Signs (Past 12 Hours) Vital Signs Temp Pulse Resp BP Pulse Ox 03/08/19 07:42 36.9 C 79 18 114/65 97 03/07/19 22:53 36.9 C 85 14 111/66 92 (1) Hypothyroidism Hypothyroidism type: unspecified Qualified Code(s): E03.9 - Hypothyroidism, unspecified (2) Hypertension Hypertension type: essential hypertension Qualified Code(s): I10 - Essential (primary) hypertension
== END 2019-03-08 13:03 | disposition home health service (06) | DRG 460 ==
LOC: 3W 12:33
DX: F32.9 Major depressive disorder, single episode, unspecified; Z98.1 Arthrodesis status; D62 Acute posthemorrhagic anemia; I10 Essential (primary) hypertension; E86.0 Dehydration; G47.00 Insomnia, unspecified; G25.81 Restless legs syndrome; R00.0 Tachycardia, unspecified; Y79.2 Prosthetic and other implants, materials and accessory orthopedic devices associated with adverse incidents; Y83.1 Surgical operation with implant of artificial internal device as the cause of abnormal reaction of the patient, or of later complication, without mention of misadventure at the time of the procedure; Z79.899 Other long term (current) drug therapy; T84.428A Displacement of other internal orthopedic devices, implants and grafts, initial encounter; Z88.0 Allergy status to penicillin; E03.9 Hypothyroidism, unspecified; Z91.040 Latex allergy status; Z88.1 Allergy status to other antibiotic agents; S32.10XA Unspecified fracture of sacrum, initial encounter for closed fracture; M79.7 Fibromyalgia; E78.5 Hyperlipidemia, unspecified; M48.062 Spinal stenosis, lumbar region with neurogenic claudication